=== PATIENT | male | born 1945 | race Caucasian/White ===

== ENCOUNTER 2016-09-08 10:17 | Outpatient (CLI) | payer MEDICARE, OTHER | END 2016-09-08 10:18 | disposition home or self-care (01) | DX: E78.5 Hyperlipidemia, unspecified (principal); E11.9 Type 2 diabetes mellitus without complications; I10 Essential (primary) hypertension ==

== ENCOUNTER 2016-12-15 08:54 | Outpatient (CLI) | payer MEDICARE, OTHER ==
[2016-12-15 14:11] LABS: ALBUMIN/GLOBULIN RATIO 1.4 (1.0-2.2); BILIRUBIN,TOTAL 0.8 mg/dL (0.2-1.0); BUN - BLOOD UREA NITROGEN 19 mg/dL (6-20); CARBON DIOXIDE - CO2 28 mmol/L (21-32); CHLORIDE 104 mmol/L (101-111); CHOL/HDL RATIO 3.8 (<5.0); CHOLESTEROL 167 mg/dL; CREATININE 1.2 mg/dL (0.6-1.2); GFR - MDRD 60 (>89); GLUCOSE 148 mg/dL (70-100); HDL CHOLESTEROL 44 mg/dL; LDL/HDL RATIO 2.3 (<3.6); POTASSIUM 4.4 mmol/L (3.5-5.0); SODIUM 138 mmol/L (135-145); TOTAL PROTEIN 7.2 g/dL (6.7-8.2); TRIGLYCERIDES 103 mg/dL; VLDL CHOLESTEROL 21 mg/dL
== END 2016-12-15 08:55 | disposition home or self-care (01) ==
LOC: LAB.WCP 08:54
PROVIDERS: ATTEND Family Medicine
DX: E78.5 Hyperlipidemia, unspecified (principal)
CPT/HCPCS: 36415; 80053; 80061

== ENCOUNTER 2017-03-16 13:04 | Outpatient (CLI) | payer MEDICARE, OTHER | END 2017-03-16 13:05 | disposition home or self-care (01) | LOC: SC 13:04 | PROVIDERS: ATTEND Nurse Practitioner Family | DX: G47.33 Obstructive sleep apnea (adult) (pediatric) (principal) | CPT/HCPCS: 99214; G0463; 99212 ==

== ENCOUNTER 2017-03-17 15:25 | Outpatient (CLI) | payer MEDICARE, OTHER ==
[2017-03-17 13:54] LABS: EOSINOPHILS # (AUTO) 0.3 10^3/uL (0.0-0.7); EOSINOPHILS % (AUTO) 8.5 %; HCT - HEMATOCRIT 41.2 % (42.0-52.0); HGB - HEMOGLOBIN 13.6 g/dL (14.0-18.0); LYMPHOCYTES # (AUTO) 0.9 10^3/uL (1.5-3.5); LYMPHOCYTES % (AUTO) 24.6 %; MEAN CORPUSCULAR HEMOGLOBIN 28.6 pg (27.0-31.0); MEAN CORPUSCULAR VOLUME 86.6 fL (80.0-94.0); MEAN PLATELET VOLUME 9.7 fL (7.4-11.4); MONOCYTES # (AUTO) 0.6 10^3/uL (0.0-1.0); MONOCYTES % (AUTO) 17.6 %; NEUTROPHILS # (AUTO) 1.8 10^3/uL (1.5-6.6); NEUTROPHILS % (AUTO) 48.3 %; RED BLOOD COUNT 4.75 10^6/uL (4.70-6.10); RED CELL DISTRIBUTION WIDTH 14.6 % (12.0-15.0); UNCORRECTED WHITE BLOOD COUNT 3.7 x10^3/uL; WHITE BLOOD COUNT 3.7 x10^3/uL (4.8-10.8)
[2017-03-17 14:09] LABS: ALBUMIN/GLOBULIN RATIO 1.4 (1.0-2.2); BILIRUBIN,TOTAL 0.5 mg/dL (0.2-1.0); BUN - BLOOD UREA NITROGEN 22 mg/dL (6-20); CALCIUM 9.1 mg/dL (8.5-10.3); CARBON DIOXIDE - CO2 27 mmol/L (21-32); CHLORIDE 105 mmol/L (101-111); CHOL/HDL RATIO 3.5 (<5.0); CHOLESTEROL 166 mg/dL; CREATININE 1.2 mg/dL (0.6-1.2); GFR - MDRD 60 (>89); GLUCOSE 158 mg/dL (70-100); HDL CHOLESTEROL 47 mg/dL; LDL/HDL RATIO 2.1 (<3.6); POTASSIUM 4.8 mmol/L (3.5-5.0); SODIUM 138 mmol/L (135-145); TOTAL PROTEIN 7.3 g/dL (6.7-8.2); TRIGLYCERIDES 89 mg/dL; VLDL CHOLESTEROL 18 mg/dL
[2017-03-17 14:33] LABS: HEMOGLOBIN A1C 0.9 g/dL
== END 2017-03-17 15:26 | disposition home or self-care (01) ==
LOC: LAB.WCP 15:25
PROVIDERS: ATTEND Family Medicine
DX: I10 Essential (primary) hypertension (principal); E11.9 Type 2 diabetes mellitus without complications; E78.5 Hyperlipidemia, unspecified
CPT/HCPCS: 36415; 80053; 80061; 82043; 83036; 85025

== ENCOUNTER 2017-06-08 11:11 | Outpatient (CLI) | payer MEDICARE, OTHER ==
[2017-06-08 19:28] LABS: ALBUMIN 4.2 g/dL (3.2-5.5); ALBUMIN/GLOBULIN RATIO 1.3 (1.0-2.2); ALKALINE PHOSPHATASE 59 IU/L (42-121); ALT ALANINE AMINOTRANSFERASE 36 IU/L (10-60); AST ASPARTATE AMINOTRANSFERASE 37 IU/L (10-42); BILIRUBIN,TOTAL 0.6 mg/dL (0.2-1.0); BUN - BLOOD UREA NITROGEN 16 mg/dL (6-20); CALCIUM 9.2 mg/dL (8.5-10.3); CARBON DIOXIDE - CO2 28 mmol/L (21-32); CHLORIDE 101 mmol/L (101-111); CHOL/HDL RATIO 3.9 (<5.0); CHOLESTEROL 194 mg/dL; CREATININE 1.1 mg/dL (0.6-1.2); GFR - MDRD 66 (>89); GLUCOSE 195 mg/dL (70-100); HDL CHOLESTEROL 50 mg/dL; LDL CHOLESTEROL,CALCULATED 107 mg/dL; LDL/HDL RATIO 2.1 (<3.6); SODIUM 138 mmol/L (135-145); TOTAL PROTEIN 7.4 g/dL (6.7-8.2); VLDL CHOLESTEROL 37 mg/dL
[2017-06-08 19:52] LABS: HB2 TOTAL 15.7 g/dL
== END 2017-06-08 11:12 | disposition home or self-care (01) ==
LOC: LAB.WCP 11:11
PROVIDERS: ATTEND Family Medicine
DX: E78.5 Hyperlipidemia, unspecified (principal); E11.9 Type 2 diabetes mellitus without complications
CPT/HCPCS: 36415; 80053; 80061; 83036

== ENCOUNTER 2017-06-28 09:59 | Outpatient (CLI) | payer MEDICARE, OTHER | END 2017-06-28 10:00 | disposition home or self-care (01) | LOC: NS 09:59 | PROVIDERS: ATTEND Family Medicine | DX: Z71.3 Dietary counseling and surveillance (principal); E11.9 Type 2 diabetes mellitus without complications; Z79.84 Long term (current) use of oral hypoglycemic drugs; Z68.33 Body mass index [BMI] 33.0-33.9, adult | CPT/HCPCS: 97802 ==

== ENCOUNTER 2017-07-12 09:54 | Outpatient (CLI) | payer MEDICARE, OTHER | END 2017-07-12 09:55 | disposition home or self-care (01) | LOC: NS 09:54 | PROVIDERS: ATTEND Family Medicine | DX: Z71.3 Dietary counseling and surveillance (principal); E11.9 Type 2 diabetes mellitus without complications; Z79.84 Long term (current) use of oral hypoglycemic drugs; Z68.32 Body mass index [BMI] 32.0-32.9, adult | CPT/HCPCS: 97803 ==

== ENCOUNTER 2017-09-07 08:00 | Outpatient (CLI) | payer MEDICARE, OTHER ==
[2017-09-07 18:57] LABS: ALBUMIN 4.4 g/dL (3.2-5.5); ALBUMIN/GLOBULIN RATIO 1.5 (1.0-2.2); ALKALINE PHOSPHATASE 51 IU/L (42-121); ALT ALANINE AMINOTRANSFERASE 18 IU/L (10-60); AST ASPARTATE AMINOTRANSFERASE 26 IU/L (10-42); BILIRUBIN,TOTAL 0.7 mg/dL (0.2-1.0); BUN - BLOOD UREA NITROGEN 23 mg/dL (6-20); CARBON DIOXIDE - CO2 25 mmol/L (21-32); CHLORIDE 105 mmol/L (101-111); CHOL/HDL RATIO 3.3 (<5.0); CHOLESTEROL 150 mg/dL; CREATININE 1.2 mg/dL (0.6-1.2); GFR - MDRD 60 (>89); GLUCOSE 119 mg/dL (70-100); HDL CHOLESTEROL 46 mg/dL; LDL CHOLESTEROL,CALCULATED 84 mg/dL; LDL/HDL RATIO 1.8 (<3.6); SODIUM 137 mmol/L (135-145); TOTAL PROTEIN 7.4 g/dL (6.7-8.2); VLDL CHOLESTEROL 20 mg/dL
[2017-09-07 19:18] LABS: HB2 TOTAL 14.8 g/dL; HEMOGLOBIN A1C 0.91 g/dL; HEMOGLOBIN A1C % 7.8 % (4.6-6.2)
== END 2017-09-07 08:01 | disposition home or self-care (01) ==
LOC: LAB.WCP 08:00
PROVIDERS: ATTEND Family Medicine
DX: E78.5 Hyperlipidemia, unspecified (principal); E11.9 Type 2 diabetes mellitus without complications
CPT/HCPCS: 36415; 80053; 80061; 83036; 83721

== ENCOUNTER 2018-01-04 08:00 | Outpatient (CLI) | payer MEDICARE, OTHER ==
[2018-01-04 12:45] LABS: BASOPHILS # (AUTO) 0.1 10^3/uL (0.0-0.1); BASOPHILS % (AUTO) 1.2 %; EOSINOPHILS # (AUTO) 0.3 10^3/uL (0.0-0.7); EOSINOPHILS % (AUTO) 7.8 %; HGB - HEMOGLOBIN 13.8 g/dL (14.0-18.0); LYMPHOCYTES # (AUTO) 1.1 10^3/uL (1.5-3.5); LYMPHOCYTES % (AUTO) 27.2 %; MEAN CORPUSCULAR HGB CONC 33.1 g/dL (32.0-36.0); MEAN CORPUSCULAR VOLUME 90.7 fL (80.0-94.0); MEAN PLATELET VOLUME 9.9 fL (7.4-11.4); MONOCYTES # (AUTO) 0.7 10^3/uL (0.0-1.0); MONOCYTES % (AUTO) 16.1 %; NEUTROPHILS % (AUTO) 47.7 %; PLT - PLATELET COUNT 180 10^3/uL (130-450); RED BLOOD COUNT 4.61 10^6/uL (4.70-6.10); RED CELL DISTRIBUTION WIDTH 13.3 % (12.0-15.0); WHITE BLOOD COUNT 4.1 x10^3/uL (4.8-10.8)
[2018-01-04 13:05] LABS: ALBUMIN 4.1 g/dL (3.2-5.5); ALBUMIN/GLOBULIN RATIO 1.2 (1.0-2.2); ALKALINE PHOSPHATASE 55 IU/L (42-121); ALT ALANINE AMINOTRANSFERASE 19 IU/L (10-60); AST ASPARTATE AMINOTRANSFERASE 24 IU/L (10-42); BUN - BLOOD UREA NITROGEN 30 mg/dL (6-20); CALCIUM 9.3 mg/dL (8.5-10.3); CARBON DIOXIDE - CO2 26 mmol/L (21-32); CHLORIDE 104 mmol/L (101-111); CHOL/HDL RATIO 3.7 (<5.0); CHOLESTEROL 168 mg/dL; CREATININE 1.2 mg/dL (0.6-1.2); GFR - MDRD 59 (>89); GLUCOSE 139 mg/dL (70-100); HDL CHOLESTEROL 45 mg/dL; LDL CHOLESTEROL,CALCULATED 99 mg/dL; LDL/HDL RATIO 2.2 (<3.6); SODIUM 137 mmol/L (135-145); TOTAL PROTEIN 7.4 g/dL (6.7-8.2); VLDL CHOLESTEROL 24 mg/dL
[2018-01-04 13:41] LABS: HEMOGLOBIN A1C 0.83 g/dL; HEMOGLOBIN A1C % 7.2 % (4.6-6.2)
== END 2018-01-04 08:01 | disposition home or self-care (01) ==
LOC: LAB.WCP 08:00
PROVIDERS: ATTEND Family Medicine
DX: I10 Essential (primary) hypertension (principal); E11.9 Type 2 diabetes mellitus without complications; E78.5 Hyperlipidemia, unspecified
CPT/HCPCS: 36415; 80053; 80061; 83036; 83721; 85025

== ENCOUNTER 2018-03-23 13:15 | Outpatient (CLI) | payer MEDICARE, OTHER | END 2018-03-23 13:16 | disposition home or self-care (01) | LOC: SC 13:15 | PROVIDERS: ATTEND Nurse Practitioner Family | DX: G47.33 Obstructive sleep apnea (adult) (pediatric) (principal) | CPT/HCPCS: 99213; G0463; 99212 ==

== ENCOUNTER 2018-04-29 08:00 | Outpatient (CLI) | payer MEDICARE, OTHER | END 2018-04-29 23:59 | disposition home or self-care (01) | LOC: LAB.WCP 08:00 | PROVIDERS: ATTEND Family Medicine | DX: Z12.5 Encounter for screening for malignant neoplasm of prostate (principal) | CPT/HCPCS: 36415; G0103; 84153 ==

== ENCOUNTER 2018-04-29 09:17 | Outpatient (CLI) | payer MEDICARE, OTHER | END 2018-04-29 09:18 | disposition home or self-care (01) | LOC: LAB 09:17 | PROVIDERS: ATTEND Family Medicine | DX: Z53.9 Procedure and treatment not carried out, unspecified reason (principal) ==

== ENCOUNTER 2018-07-25 08:00 | Outpatient (CLI) | payer MEDICARE, OTHER ==
[2018-07-25 12:20] LABS: BASOPHILS % (AUTO) 0.9 %; EOSINOPHILS # (AUTO) 0.3 10^3/uL (0.0-0.7); HGB - HEMOGLOBIN 14.2 g/dL (14.0-18.0); LYMPHOCYTES # (AUTO) 0.8 10^3/uL (1.5-3.5); LYMPHOCYTES % (AUTO) 20.3 %; MEAN CORPUSCULAR HGB CONC 34.2 g/dL (32.0-36.0); MEAN CORPUSCULAR VOLUME 87.7 fL (80.0-94.0); MEAN PLATELET VOLUME 9.6 fL (7.4-11.4); MONOCYTES # (AUTO) 0.6 10^3/uL (0.0-1.0); MONOCYTES % (AUTO) 15.3 %; NEUTROPHILS # (AUTO) 2.2 10^3/uL (1.5-6.6); NEUTROPHILS % (AUTO) 56.5 %; PLT - PLATELET COUNT 174 10^3/uL (130-450); RED BLOOD COUNT 4.73 10^6/uL (4.70-6.10); RED CELL DISTRIBUTION WIDTH 13.3 % (12.0-15.0)
[2018-07-25 12:58] LABS: ALBUMIN 4.3 g/dL (3.2-5.5); ALBUMIN/GLOBULIN RATIO 1.3 (1.0-2.2); ALKALINE PHOSPHATASE 61 IU/L (42-121); ALT ALANINE AMINOTRANSFERASE 27 IU/L (10-60); AST ASPARTATE AMINOTRANSFERASE 25 IU/L (10-42); BILIRUBIN,TOTAL 0.5 mg/dL (0.2-1.0); BUN - BLOOD UREA NITROGEN 19 mg/dL (6-20); CALCIUM 9.2 mg/dL (8.5-10.3); CARBON DIOXIDE - CO2 27 mmol/L (21-32); CHLORIDE 103 mmol/L (101-111); CHOL/HDL RATIO 3.8 (<5.0); CHOLESTEROL 196 mg/dL; CREATININE 1.1 mg/dL (0.6-1.2); GFR - MDRD 66 (>89); GLUCOSE 185 mg/dL (70-100); HDL CHOLESTEROL 51 mg/dL; LDL CHOLESTEROL,CALCULATED 118 mg/dL; LDL/HDL RATIO 2.3 (<3.6); SODIUM 137 mmol/L (135-145); TOTAL PROTEIN 7.6 g/dL (6.7-8.2); VLDL CHOLESTEROL 27 mg/dL
[2018-07-25 13:20] LABS: HB2 TOTAL 16.1 g/dL; HEMOGLOBIN A1C 1.11 g/dL; HEMOGLOBIN A1C % 8.5 % (4.6-6.2)
== END 2018-07-25 23:59 | disposition home or self-care (01) ==
LOC: LAB.WCP 08:00
PROVIDERS: ATTEND Family Medicine
DX: I10 Essential (primary) hypertension (principal); E11.9 Type 2 diabetes mellitus without complications; E78.5 Hyperlipidemia, unspecified
CPT/HCPCS: 36415; 80053; 80061; 82043; 83036; 83721; 85025

== ENCOUNTER 2018-08-11 08:00 | Outpatient (CLI) | payer MEDICARE, OTHER ==
[2018-08-11 13:46] LABS: BASOPHILS % (AUTO) 0.8 %; EOSINOPHILS # (AUTO) 0.3 10^3/uL (0.0-0.7); HGB - HEMOGLOBIN 13.7 g/dL (14.0-18.0); LYMPHOCYTES # (AUTO) 0.9 10^3/uL (1.5-3.5); LYMPHOCYTES % (AUTO) 21.5 %; MEAN CORPUSCULAR HEMOGLOBIN 29.5 pg (27.0-31.0); MEAN CORPUSCULAR HGB CONC 33.3 g/dL (32.0-36.0); MEAN CORPUSCULAR VOLUME 88.6 fL (80.0-94.0); MEAN PLATELET VOLUME 10.2 fL (7.4-11.4); MONOCYTES # (AUTO) 0.6 10^3/uL (0.0-1.0); MONOCYTES % (AUTO) 14.4 %; NEUTROPHILS # (AUTO) 2.4 10^3/uL (1.5-6.6); NEUTROPHILS % (AUTO) 56.3 %; PLT - PLATELET COUNT 190 10^3/uL (130-450); RED BLOOD COUNT 4.66 10^6/uL (4.70-6.10); RED CELL DISTRIBUTION WIDTH 13.5 % (12.0-15.0); WHITE BLOOD COUNT 4.2 x10^3/uL (4.8-10.8)
== END 2018-08-11 23:59 ==
LOC: LAB.WCP 08:00
PROVIDERS: ATTEND Family Medicine
DX: M25.551 Pain in right hip (principal); W55.01XA Bitten by cat, initial encounter
CPT/HCPCS: 36415; 85025; 85651; 86140

== ENCOUNTER 2018-08-11 08:32 | Outpatient (CLI) | payer MEDICARE, OTHER ==
--- NOTE | 2018-08-11 14:42 | XRAY Report ---
Reason: HIP PAIN, RIGHT Procedure Date: 08/11/2018 Accession Number: [id number] / [id number] Procedure: WCP - Hip w/Pelvis 2-3V RT CPT Code: FULL RESULT: EXAM: RIGHT HIP RADIOGRAPHY EXAM DATE: 08/11/2018 08:55 AM. CLINICAL HISTORY: Hip pain, right. COMPARISON: 04/20/2011 1:44 PM. TECHNIQUE: 2 views. FINDINGS: Interval bilateral total hip arthroplasty when compared to 2010. The right total hip arthroplasty demonstrates no evidence of dislocation or failure. No fracture or dislocation is seen. IMPRESSION: No fracture or dislocation. RADIA
== END 2018-08-11 08:33 | disposition home or self-care (01) ==
LOC: DI.WCP 08:32
PROVIDERS: ATTEND Family Medicine
DX: M25.551 Pain in right hip (principal); Z96.643 Presence of artificial hip joint, bilateral; W55.01XA Bitten by cat, initial encounter
CPT/HCPCS: 36415; 85025; 85651; 86140

== ENCOUNTER 2018-10-11 16:40 | Outpatient (CLI) | payer MEDICARE, OTHER ==
--- NOTE | 2018-10-12 10:45 | Ultrasound Report ---
Reason: SUBCUTANEOUS NODULE OF CHEST WALL Procedure Date: 10/11/2018 Accession Number: [id number] / [id number] Procedure: US - Chest CPT Code: FULL RESULT: EXAM: CHEST WALL ULTRASOUND LIMITED EXAM DATE: 10/11/2018 04:53 PM. CLINICAL HISTORY: Subcutaneous nodule of chest wall. COMPARISON: None. TECHNIQUE: Real-time scanning was performed with static images obtained. FINDINGS: The soft tissues overlying the mid sternum are focally interrogated in the region of interest. An isoechoic 1.2 x 1.0 cm mass was identified with vascularity peripherally, slightly wider than tall and relatively well circumscribed. IMPRESSION: Nonspecific 1.2 cm isoechoic mass as described. RADIA
== END 2018-10-11 16:41 | disposition home or self-care (01) ==
LOC: DI 16:40
PROVIDERS: ATTEND Family Medicine
DX: R22.2 Localized swelling, mass and lump, trunk (principal)
CPT/HCPCS: 76604

== ENCOUNTER 2018-11-15 08:00 | Outpatient (CLI) | payer MEDICARE, OTHER ==
[2018-11-15 14:36] LABS: BASOPHILS % (AUTO) 0.8 %; EOSINOPHILS # (AUTO) 0.3 10^3/uL (0.0-0.7); EOSINOPHILS % (AUTO) 7.1 %; HGB - HEMOGLOBIN 13.3 g/dL (14.0-18.0); LYMPHOCYTES # (AUTO) 0.9 10^3/uL (1.5-3.5); LYMPHOCYTES % (AUTO) 25.7 %; MEAN CORPUSCULAR HEMOGLOBIN 29.9 pg (27.0-31.0); MEAN CORPUSCULAR HGB CONC 33.8 g/dL (32.0-36.0); MEAN CORPUSCULAR VOLUME 88.5 fL (80.0-94.0); MEAN PLATELET VOLUME 9.8 fL (7.4-11.4); MONOCYTES # (AUTO) 0.6 10^3/uL (0.0-1.0); MONOCYTES % (AUTO) 16.4 %; NEUTROPHILS # (AUTO) 1.8 10^3/uL (1.5-6.6); PLT - PLATELET COUNT 178 10^3/uL (130-450); RED BLOOD COUNT 4.44 10^6/uL (4.70-6.10); RED CELL DISTRIBUTION WIDTH 13.7 % (12.0-15.0); WHITE BLOOD COUNT 3.7 x10^3/uL (4.8-10.8)
[2018-11-15 15:03] LABS: HB2 TOTAL 14.2 g/dL; HEMOGLOBIN A1C 1.01 g/dL; HEMOGLOBIN A1C % 8.7 % (4.6-6.2)
[2018-11-15 15:08] LABS: ALBUMIN 4.1 g/dL (3.2-5.5); ALBUMIN/GLOBULIN RATIO 1.4 (1.0-2.2); ALKALINE PHOSPHATASE 44 IU/L (42-121); ALT ALANINE AMINOTRANSFERASE 22 IU/L (10-60); AST ASPARTATE AMINOTRANSFERASE 24 IU/L (10-42); BILIRUBIN,TOTAL 0.7 mg/dL (0.2-1.0); BUN - BLOOD UREA NITROGEN 33 mg/dL (6-20); CALCIUM 9.4 mg/dL (8.5-10.3); CARBON DIOXIDE - CO2 25 mmol/L (21-32); CHLORIDE 105 mmol/L (101-111); CHOL/HDL RATIO 3.3 (<5.0); CHOLESTEROL 157 mg/dL; CREATININE 1.1 mg/dL (0.6-1.2); GFR - MDRD 65 (>89); GLUCOSE 166 mg/dL (70-100); HDL CHOLESTEROL 47 mg/dL; LDL CHOLESTEROL,CALCULATED 92 mg/dL; SODIUM 139 mmol/L (135-145); VLDL CHOLESTEROL 18 mg/dL
== END 2018-11-15 23:59 | disposition home or self-care (01) ==
LOC: LAB.WCP 08:00
PROVIDERS: ATTEND Family Medicine
DX: E78.5 Hyperlipidemia, unspecified (principal); E11.9 Type 2 diabetes mellitus without complications; I10 Essential (primary) hypertension
CPT/HCPCS: 36415; 80053; 80061; 83036; 83721; 85025

== ENCOUNTER 2019-02-14 08:00 | Outpatient (CLI) | payer MEDICARE, OTHER ==
[2019-02-14 12:44] LABS: EOSINOPHILS # (AUTO) 0.2 10^3/uL (0.0-0.7); EOSINOPHILS % (AUTO) 5.8 %; HGB - HEMOGLOBIN 13.4 g/dL (14.0-18.0); LYMPHOCYTES # (AUTO) 1.2 10^3/uL (1.5-3.5); MEAN CORPUSCULAR HEMOGLOBIN 29.5 pg (27.0-31.0); MEAN CORPUSCULAR HGB CONC 32.3 g/dL (32.0-36.0); MEAN CORPUSCULAR VOLUME 91.2 fL (80.0-94.0); MEAN PLATELET VOLUME 11.8 fL (7.4-11.4); MONOCYTES # (AUTO) 0.6 10^3/uL (0.0-1.0); MONOCYTES % (AUTO) 15.5 %; NEUTROPHILS # (AUTO) 1.9 10^3/uL (1.5-6.6); NEUTROPHILS % (AUTO) 48.4 %; PLT - PLATELET COUNT 184 10^3/uL (130-450); RED BLOOD COUNT 4.55 10^6/uL (4.70-6.10); RED CELL DISTRIBUTION WIDTH 12.8 % (12.0-15.0)
[2019-02-14 12:47] LABS: ALBUMIN 4.1 g/dL (3.2-5.5); ALBUMIN/GLOBULIN RATIO 1.4 (1.0-2.2); ALKALINE PHOSPHATASE 53 IU/L (42-121); ALT ALANINE AMINOTRANSFERASE 19 IU/L (10-60); AST ASPARTATE AMINOTRANSFERASE 20 IU/L (10-42); BILIRUBIN,TOTAL 0.6 mg/dL (0.2-1.0); BUN - BLOOD UREA NITROGEN 23 mg/dL (6-20); CALCIUM 9.1 mg/dL (8.5-10.3); CARBON DIOXIDE - CO2 27 mmol/L (21-32); CHLORIDE 106 mmol/L (101-111); CHOLESTEROL 169 mg/dL; CREATININE 1.2 mg/dL (0.6-1.2); GFR - MDRD 59 (>89); GLUCOSE 150 mg/dL (70-100); HDL CHOLESTEROL 42 mg/dL; LDL CHOLESTEROL,CALCULATED 100 mg/dL; LDL/HDL RATIO 2.4 (<3.6); SODIUM 138 mmol/L (135-145); VLDL CHOLESTEROL 27 mg/dL
[2019-02-14 12:52] LABS: HB2 TOTAL 14.1 g/dL; HEMOGLOBIN A1C 0.77 g/dL; HEMOGLOBIN A1C % 7.1 % (4.6-6.2)
== END 2019-02-14 23:59 | disposition home or self-care (01) ==
LOC: LAB.WCP 08:00
PROVIDERS: ATTEND Family Medicine
DX: E11.9 Type 2 diabetes mellitus without complications (principal); I10 Essential (primary) hypertension; E78.5 Hyperlipidemia, unspecified; D64.9 Anemia, unspecified
CPT/HCPCS: 36415; 80053; 80061; 83036; 83721; 85025

== ENCOUNTER 2019-04-05 13:13 | Outpatient (CLI) | payer MEDICARE, OTHER ==
--- NOTE | 2019-04-05 13:41 | SLEEP CARE CONSULTATION ---
Information from patient questionnaire entered by Pamela Braxton. I have reviewed and concur with the information entered by Pamela Braxton. This document represents the service I personally performed and the decisions made by me, Trina Lantigua, RN, MSN, DESIGN CHIEF. History of Present Illness Previous diagnosis: Moderate, Obstructive Sleep Apnea-Hypopnea Syndrome AHI: 27.3 Reason for follow up: annual Equipment type: CPAP Equipment obtained from: [employer] (has been having difficulty getting supplies in timely manner and spoke today to them and trying new system of ordering) Mask style: Nasal pillows Mask brand: Respironics Backup mask available: Yes Last cushion change: yesterday CPAP Compliance Data - Data Reviewed with Patient Average duration of nightly device use: 7.2 Compliance rate %: 99.4 (180 days) Current pressure setting (cmH2O): 10 Humidity settin Heated hose settin Average residual AHI: 1.7 Average large leak: 13 sec Subjective Patient concerns: reports: mask leak noise (only initially and adjustment resolves). denies: aerophagia, mask discomfort, air blowing in eyes, condensation in mask/hose, nasal congestion, dry mouth, nose, throat, epistaxis Observed to snore while using device: No (but oral vents a couple times a week. ) Current pressure setting perceived as: comfortable On therapy, patient: reports: sleeping better, awakening more refreshed, being more awake and alert during the day, more rested overall. denies: drowsiness while driving Initial [place] Sleepiness Scale score: 4 Current [place] Sleepiness Scale score: 1 Allergies and Home Medications Known drug allergies: No Home medication list reviewed: Yes Allergy and home medication list: Aspirin EC 81mg tab one daily Lisinopril 5mg tab one daily Centrum Silver 50+ Men Tab one daily Metformin HCL 500mg tab three times daily with meals CoQ10 100mg cap one daily Zetia 10mg tab one daily Vitamin D3 5000IU tab one daily Cephalexin 2000mg prior to dental procedures Review of Systems Review of systems same as previous: No (back surgery for herniated disc, removal of bilateral cataracts) Physical Exam Blood Pressure: 140/70 Cuff size: long Heart Rate: 87 O2 Saturation: 97 Height: 6 ft 1.25 in Weight: 243 lb 6.4 oz Body Mass Index: 31.8 BMI Classification: Obesity Class 1 Impression and Plan 1. Obstructive Sleep Apnea-Hypopnea Syndrome, moderate, with good treatment compliance and good apnea control. On CPAP therapy, the patient has better sleep quality and is more rested overall. For oral venting, I will reduce CPAP pressure to 9cmH20. If pressure change is uncomfortable he is to contact me for further adjustment. Since his BMI shows class one obesity, he was advised to lose weight. I explained how his obesity increases apnea risk and overall cardiometabolic risks. He is advised to start by reducing portions, and focusing on whole foods and avoiding refined foods. Significant weight loss will reduce apnea and CPAP pressure requirements. Symptoms to report discussed for pressure adjustment. Patient's apnea severity and rationale for treatment to reduce apnea, improve sleep quality and reduce cardiovascular and cerebrovascular events was reviewed. I also reviewed the benefit of consistent device use of CPAP for diabetes * Reduce CPAP pressure to 9 cmH2O * Notify me if snoring with mask or feeling that the pressure is too much or too little * Attempt to lose weight * Return for follow up in 1 year , or sooner if concerns arise . I spent 100% of this 20 minute visit face to face with the patient with greater than 50% of this was spent time counseling the patient and coordination of care.
[2019-04-05 13:42] VITALS: BP 140/70
== END 2019-04-05 13:14 | disposition home or self-care (01) ==
LOC: SC 13:13
PROVIDERS: ATTEND Nurse Practitioner Family
DX: G47.33 Obstructive sleep apnea (adult) (pediatric) (principal); E66.9 Obesity, unspecified; Z68.31 Body mass index [BMI] 31.0-31.9, adult
CPT/HCPCS: 99213; G0463; 99212

== ENCOUNTER 2019-07-10 09:18 | Outpatient (CLI) | payer MEDICARE, OTHER ==
[2019-07-10 12:02] LABS: BASOPHILS % (AUTO) 0.9 %; EOSINOPHILS # (AUTO) 0.3 10^3/uL (0.0-0.7); EOSINOPHILS % (AUTO) 6.6 %; HGB - HEMOGLOBIN 13.5 g/dL (14.0-18.0); LYMPHOCYTES % (AUTO) 23.1 %; MEAN CORPUSCULAR HEMOGLOBIN 29.4 pg (27.0-31.0); MEAN CORPUSCULAR HGB CONC 32.8 g/dL (32.0-36.0); MEAN CORPUSCULAR VOLUME 89.8 fL (80.0-94.0); MEAN PLATELET VOLUME 11.4 fL (7.4-11.4); MONOCYTES # (AUTO) 0.7 10^3/uL (0.0-1.0); NEUTROPHILS # (AUTO) 2.3 10^3/uL (1.5-6.6); NEUTROPHILS % (AUTO) 53.2 %; PLT - PLATELET COUNT 217 10^3/uL (130-450); RED BLOOD COUNT 4.59 10^6/uL (4.70-6.10); WHITE BLOOD COUNT 4.3 x10^3/uL (4.8-10.8)
[2019-07-10 13:00] LABS: ALBUMIN/GLOBULIN RATIO 1.3 (1.0-2.2); ALKALINE PHOSPHATASE 48 IU/L (42-121); ALT ALANINE AMINOTRANSFERASE 28 IU/L (10-60); AST ASPARTATE AMINOTRANSFERASE 26 IU/L (10-42); BILIRUBIN,TOTAL 0.6 mg/dL (0.2-1.0); BUN - BLOOD UREA NITROGEN 20 mg/dL (6-20); CARBON DIOXIDE - CO2 25 mmol/L (21-32); CHLORIDE 107 mmol/L (101-111); CHOL/HDL RATIO 3.9 (<5.0); CHOLESTEROL 172 mg/dL; CREATININE 1.2 mg/dL (0.6-1.2); GFR - MDRD 59 (>89); GLUCOSE 191 mg/dL (70-100); HDL CHOLESTEROL 44 mg/dL; LDL CHOLESTEROL,CALCULATED 110 mg/dL; LDL/HDL RATIO 2.5 (<3.6); SODIUM 140 mmol/L (135-145); TOTAL PROTEIN 7.1 g/dL (6.7-8.2); VLDL CHOLESTEROL 18 mg/dL
[2019-07-10 13:03] LABS: HB2 TOTAL 13.5 g/dL; HEMOGLOBIN A1C 0.92 g/dL; HEMOGLOBIN A1C % 8.4 % (4.6-6.2)
== END 2019-07-10 23:59 | disposition home or self-care (01) ==
LOC: LAB.WCP 09:18
PROVIDERS: ATTEND Family Medicine
DX: E11.9 Type 2 diabetes mellitus without complications (principal)
CPT/HCPCS: 36415; 80053; 80061; 83036; 83721; 85025

== ENCOUNTER 2019-10-11 08:00 | Outpatient (CLI) | payer MEDICARE, OTHER ==
[2019-10-11 13:59] LABS: CALCIUM 9.4 mg/dL (8.5-10.3); CREATININE 1.2 mg/dL (0.6-1.2)
[2019-10-11 14:10] LABS: HB2 TOTAL 14.2 g/dL; HEMOGLOBIN A1C % 8.6 % (4.6-6.2)
== END 2019-10-11 23:59 | disposition home or self-care (01) ==
LOC: LAB.WCP 08:00
PROVIDERS: ATTEND Family Medicine
DX: E11.9 Type 2 diabetes mellitus without complications (principal)
CPT/HCPCS: 36415; 80048; 83036

== ENCOUNTER 2019-12-29 06:30 | Day surgery (SDC) | payer MEDICARE, OTHER ==
[2019-12-29] MEDS ORDERED: MIDAZOLAM 2 MG/2 ML VIAL IVP ONE (06:31)
[2019-12-29] MEDS ORDERED: fentaNYL 250 MCG/5 ML VIAL IVP ONE (06:31)
[2019-12-29] MEDS ORDERED: LACTATED RINGERS 1,000 ML IV ONE ×2 (07:06→08:15)
[2019-12-29 09:24] VITALS: BP 118/73
== END 2019-12-29 06:31 | disposition home or self-care (01) ==
LOC: SDS 06:30
PROVIDERS: ATTEND Surgery
PROC: 0DJD8ZZ Inspection of Lower Intestinal Tract, Via Natural or Artificial Opening Endoscopic (ICD-10-PCS; principal; 2019-12-29 07:30)
DX: Z12.11 Encounter for screening for malignant neoplasm of colon (principal); E11.9 Type 2 diabetes mellitus without complications; E66.9 Obesity, unspecified; G47.30 Sleep apnea, unspecified; Z68.32 Body mass index [BMI] 32.0-32.9, adult; Z79.84 Long term (current) use of oral hypoglycemic drugs; Z86.010 Personal history of colon polyps
CPT/HCPCS: G0121; J3010; J7120

== ENCOUNTER 2020-04-04 13:42 | Outpatient (CLI) | payer MEDICARE, OTHER ==
--- NOTE | 2020-04-04 09:30 | SLEEP CARE CONSULTATION ---
Information from patient questionnaire entered by Cleo Stafford. I have reviewed and concur with the information entered by Cleo Stafford. This document represents the service I personally performed and the decisions made by me, Therese Nath ARNP. History of Present Illness Service Date and Time: 04/04/2020 0920 Previous diagnosis: Moderate, Obstructive Sleep Apnea-Hypopnea Syndrome AHI: 27.3 Reason for follow up: annual (last seen 2018) Equipment type: CPAP Equipment obtained from: [employer] (getting supplies as needed) Mask style: Nasal pillows Backup mask available: Yes (old mask) Last cushion change: 2 weeks ago Prior sleep studies: Yes Year and Where: 02/2005 location unknown Type of Sleep Study: Polysomnography HPI additional information: ERIC QURESHI was diagnosed to have moderate, AHI 27.3, obstructive sleep apnea-hypopnea syndrome and returns vial Telehealth video today with spouse for CPAP therapy annual follow-up. CPAP Compliance Data - Data Reviewed with Patient Average duration of nightly device use: 7 hours 16 minutes Compliance rate %: 99.4 Current pressure setting (cmH2O): 9 Humidity settin Average residual AHI: 2.1 Central apnea: 0.5 Obstructive apnea: 0.2 Average large leak: 11 seconds Subjective Patient concerns: reports: dry mouth, nose, throat (dry mouth once in a while, probably from mouth breathing). denies: aerophagia, mask discomfort, air blowing in eyes, mask leak noise, condensation in mask/hose, nasal congestion, epistaxis, other Observed to snore while using device: No Current pressure setting perceived as: comfortable On therapy, patient: reports: sleeping better, awakening more refreshed, being more awake and alert during the day, more rested overall. denies: drowsiness while driving Initial [place] Sleepiness Scale score: 4 Allergies and Home Medications Drug allergies reviewed: Yes (NKDA) Home medication list reviewed: Yes (Trulicity for DM) Review of Systems Review of systems same as previous: Yes (no changes) Weight loss over past 5 years: 10 pounds + over last 3-4 months Physical Exam Vital signs obtained and entered by: Telehealth visit, no vitals obtained Height: 6 ft 1 in Impression and Plan 1. Obstructive Sleep Apnea-Hypopnea Syndrome, moderate, with excellent treatment compliance and good apnea control. On CPAP therapy, the patient has better sleep quality and is more rested overall. Patient is doing well with his therapy and has no complaints. The patients CPAP is over 5 years old and of reasonable use. Thus, the CPAP will be updated. A DWO prescription will be made. Compliance guidelines for new device and follow up discussed. Patient's apnea severity and rationale for treatment to reduce apnea, improve sleep quality and reduce cardiovascular and cerebrovascular events was reviewed. I also reviewed the benefit of consistent device use of CPAP for his diabetes. Patient has lost weight. Obesity increases the risk of apnea, CPAP pressure requirements and overall health risks especially cardiovascular and diabetes. Thus patient is advised to continue to lose weight. * Continue auto CPAP pressure at 9 cmH2O * Update CPAP machine * Notify me if snoring with mask or feeling that the pressure is too much or too little * Continue to lose weight * Call this office if any problems using CPAP * Return for follow up in 1-2 months, or sooner if concerns arise Counseling Topics: Spare mask, Weight loss health impact Visit Type: Telehealth Video Video Type: Doximity Patient Location: Home Location of Provider: Home Patient agrees and consents to this telehealth visit type: Yes Patient agrees to have their insurance billed: Yes Time Spent with Patient (minutes): 16 Provider Statement: I spent 100% of the Telehealth Video Call with the patient with greater than 50% spent counseling the patient and coordination of care.
== END 2020-04-04 13:43 | disposition home or self-care (01) ==
LOC: SC 13:42
PROVIDERS: ATTEND Nurse Practitioner Family
DX: G47.33 Obstructive sleep apnea (adult) (pediatric) (principal)

== ENCOUNTER 2020-06-10 08:19 | Outpatient (CLI) | payer MEDICARE, OTHER ==
[2020-06-10 12:07] LABS: BASOPHILS % (AUTO) 0.7 %; EOSINOPHILS # (AUTO) 0.3 10^3/uL (0.0-0.7); EOSINOPHILS % (AUTO) 6.4 %; HGB - HEMOGLOBIN 12.7 g/dL (14.0-18.0); LYMPHOCYTES # (AUTO) 1.2 10^3/uL (1.5-3.5); LYMPHOCYTES % (AUTO) 26.7 %; MEAN CORPUSCULAR HGB CONC 32.2 g/dL (32.0-36.0); MEAN CORPUSCULAR VOLUME 90.2 fL (80.0-94.0); MEAN PLATELET VOLUME 11.7 fL (7.4-11.4); MONOCYTES # (AUTO) 0.7 10^3/uL (0.0-1.0); MONOCYTES % (AUTO) 16.3 %; NEUTROPHILS # (AUTO) 2.3 10^3/uL (1.5-6.6); NEUTROPHILS % (AUTO) 49.7 %; PLT - PLATELET COUNT 185 10^3/uL (130-450); RED BLOOD COUNT 4.38 10^6/uL (4.70-6.10); RED CELL DISTRIBUTION WIDTH 12.9 % (12.0-15.0); WHITE BLOOD COUNT 4.5 x10^3/uL (4.8-10.8)
[2020-06-10 13:24] LABS: ALBUMIN 4.1 g/dL (3.2-5.5); ALBUMIN/GLOBULIN RATIO 1.5 (1.0-2.2); ALKALINE PHOSPHATASE 51 IU/L (42-121); ALT ALANINE AMINOTRANSFERASE 21 IU/L (10-60); AST ASPARTATE AMINOTRANSFERASE 23 IU/L (10-42); BILIRUBIN,TOTAL 0.7 mg/dL (0.2-1.0); BUN - BLOOD UREA NITROGEN 16 mg/dL (6-20); CALCIUM 9.4 mg/dL (8.5-10.3); CARBON DIOXIDE - CO2 27 mmol/L (21-32); CHLORIDE 105 mmol/L (101-111); CHOL/HDL RATIO 2.9 (<5.0); CHOLESTEROL 144 mg/dL; CREATININE 1.2 mg/dL (0.6-1.2); GLUCOSE 179 mg/dL (70-100); HDL CHOLESTEROL 49 mg/dL; LDL CHOLESTEROL,CALCULATED 73 mg/dL; LDL/HDL RATIO 1.5 (<3.6); SODIUM 140 mmol/L (135-145); TOTAL PROTEIN 6.8 g/dL (6.7-8.2); VLDL CHOLESTEROL 22 mg/dL
[2020-06-10 13:33] LABS: CREATININE,URINE 163.1 mg/dL; MICROALBUM/CREATININE RATIO,UR 4.9 ug/mg (<30.0); MICROALBUMIN,URINE 0.8 mg/dL (0-300.0)
[2020-06-10 13:34] LABS: HEMOGLOBIN A1c% 7.2 % (4.27-6.07)
== END 2020-06-10 23:59 | disposition home or self-care (01) ==
LOC: LAB.WCP 08:19
PROVIDERS: ATTEND Family Medicine
DX: E11.9 Type 2 diabetes mellitus without complications (principal)
CPT/HCPCS: 36415; 80053; 80061; 82043; 82570; 83036; 83721; 85025

== ENCOUNTER 2020-08-13 09:43 | Outpatient (CLI) | payer MEDICARE, OTHER ==
--- NOTE | 2020-08-13 10:33 | SLEEP CARE CONSULTATION ---
Information from patient questionnaire entered by Pamela Braxton. I have reviewed and concur with the information entered by Pamela Braxton. This document represents the service I personally performed and the decisions made by , Therese Nath ARNP. History of Present Illness Service Date and Time: 08/13/2020 0943 Previous diagnosis: Moderate, Obstructive Sleep Apnea-Hypopnea Syndrome AHI: 27.3 (in 2004) Reason for follow up: first compliance after device update Equipment type: CPAP Equipment obtained from: [employer] (getting supplies as needed) Mask style: Nasal pillows Mask brand: Respironics (Dreamwear) Backup mask available: Yes (old mask) Last cushion change: 1 week ago Prior sleep studies: Yes Year and Where: 2004 [facility] Type of Sleep Study: Polysomnography HPI additional information: ERIC QURESHI was diagnosed to have moderate, AHI 27.3, obstructive sleep apnea-hypopnea syndrome and returned today with spouse for CPAP therapy first compliance after updating device follow-up. CPAP Compliance Data - Data Reviewed with Patient Average duration of nightly device use: 6 hr 35 min Compliance rate %: 90 Current pressure setting (cmH2O): 9 Humidity settin Heated hose settin Average residual AHI: 1.0 Average large leak: 43 sec Subjective Patient concerns: denies: aerophagia, mask discomfort, air blowing in eyes, mask leak noise, condensation in mask/hose, nasal congestion, dry mouth, nose, throat (using chinstrap to keep from having dry mouth), epistaxis, other Observed to snore while using device: No Current pressure setting perceived as: comfortable On therapy, patient: reports: sleeping better, awakening more refreshed, being more awake and alert during the day, more rested overall. denies: drowsiness while driving Initial [place] Sleepiness Scale score: 4 (in 2009) Current [place] Sleepiness Scale score: 3 Allergies and Home Medications Drug allergies reviewed: Yes (NKDA) Home medication list reviewed: Yes (Raheem) Review of Systems Review of systems same as previous: Yes (no changes) Physical Exam Heart Rate: 79 O2 Saturation: 98 Height: 6 ft 1 in Weight: 236 lb Body Mass Index: 31.1 BMI Classification: Obese Impression and Plan 1. Obstructive Sleep Apnea-Hypopnea Syndrome, moderate, with good treatment compliance and good apnea control. On CPAP therapy, the patient has better sleep quality and is more rested overall. He has no concerns or issues with mask or CPAP use. Patient's apnea severity and rationale for treatment to reduce apnea, improve sleep quality and reduce cardiovascular and cerebrovascular events was reviewed. I also reviewed the benefit of consistent device use of CPAP for his diabetes. * Continue auto CPAP pressure at 9 cmH2O * Notify me if snoring with mask or feeling that the pressure is too much or too little * Attempt to lose weight * Call this office if any problems using CPAP * Return for follow up in 1 year, or sooner if concerns arise Counseling Topics: Spare mask, Weight loss health impact Visit Type: In Office Time Spent with Patient (minutes): 14 Provider Statement: I spent 100% of the Face to Face Visit with the patient with greater than 50% spent counseling the patient and coordination of care.
== END 2020-08-13 09:44 | disposition home or self-care (01) ==
LOC: SC 09:43
PROVIDERS: ATTEND Nurse Practitioner Family
DX: G47.33 Obstructive sleep apnea (adult) (pediatric) (principal); E11.9 Type 2 diabetes mellitus without complications; E66.9 Obesity, unspecified; Z68.31 Body mass index [BMI] 31.0-31.9, adult; Z79.84 Long term (current) use of oral hypoglycemic drugs
CPT/HCPCS: 99212; G0463

== ENCOUNTER 2020-08-28 07:00 | Outpatient (CLI) | payer MEDICARE, OTHER ==
--- NOTE | 2020-08-28 14:34 | XRAY Report ---
PROCEDURE: Lumbar Spine Complete INDICATIONS: LOW BACK PAIN TECHNIQUE: 4 views of the lumbar spine were acquired. COMPARISON: None. FINDINGS: Bones: 5 [id number] vertebrae are present. There is trace multi-level retrolithesis. Mild to moderate disc space narrowing at L4-5, L5-S1. Moderate to severe foraminal narrowing at L4-5, L5-S1. No vertebral body compression fractures. No suspicious bony lesions. Soft tissues: Overlying bowel gas pattern is normal. No suspicious soft tissue calcifications. IMPRESSION: Degenerative changes most severe at L4-5, L5-S1. Reviewed by: Karen Ballard MD on 08/28/2020 2:33 PM PDT Approved by: Karen Ballard MD on 08/28/2020 2:33 PM PDT Station ID: [id number]
== END 2020-08-28 23:59 | disposition home or self-care (01) ==
LOC: DI.WCP 07:00
PROVIDERS: ATTEND Family Medicine
DX: M54.5 Low back pain (principal); M47.817 Spondylosis without myelopathy or radiculopathy, lumbosacral region

== ENCOUNTER 2020-09-09 08:00 | Outpatient (CLI) | payer MEDICARE, OTHER ==
[2020-09-09 13:10] LABS: ESTIMATED AVERAGE GLUCOSE 171 mg/dL (70-100); HEMOGLOBIN A1c% 7.6 % (4.27-6.07)
[2020-09-09 13:11] LABS: CREATININE 1.2 mg/dL (0.6-1.2); POTASSIUM 4.8 mmol/L (3.5-5.0)
[2020-09-09 13:12] LABS: CALCIUM 9.4 mg/dL (8.5-10.3)
== END 2020-09-09 23:59 | disposition home or self-care (01) ==
LOC: LAB.WCP 08:00
PROVIDERS: ATTEND Family Medicine
DX: E11.9 Type 2 diabetes mellitus without complications (principal)
CPT/HCPCS: 36415; 80048; 83036

== ENCOUNTER 2020-12-04 08:00 | Outpatient (CLI) | payer MEDICARE, OTHER ==
[2020-12-04 12:46] LABS: ESTIMATED AVERAGE GLUCOSE 169 mg/dL (70-100); HEMOGLOBIN A1c% 7.5 % (4.27-6.07)
[2020-12-04 13:02] LABS: CALCIUM 9.1 mg/dL (8.5-10.3); CREATININE 1.2 mg/dL (0.6-1.2); POTASSIUM 4.5 mmol/L (3.5-5.0)
== END 2020-12-04 23:59 | disposition home or self-care (01) ==
LOC: LAB.WCP 08:00
PROVIDERS: ATTEND Family Medicine
DX: E11.9 Type 2 diabetes mellitus without complications (principal)
CPT/HCPCS: 36415; 80048; 83036

== ENCOUNTER 2021-05-20 08:47 | Outpatient (CLI) | payer MEDICARE, OTHER ==
[2021-05-20 12:15] LABS: BASOPHILS % (AUTO) 0.9 %; EOSINOPHILS # (AUTO) 0.3 10^3/uL (0.0-0.7); EOSINOPHILS % (AUTO) 7.7 %; HCT - HEMATOCRIT 40.3 % (42.0-52.0); HGB - HEMOGLOBIN 13.2 g/dL (14.0-18.0); LYMPHOCYTES # (AUTO) 1.1 10^3/uL (1.5-3.5); LYMPHOCYTES % (AUTO) 23.9 %; MEAN CORPUSCULAR HEMOGLOBIN 29.5 pg (27.0-31.0); MEAN CORPUSCULAR HGB CONC 32.8 g/dL (32.0-36.0); MEAN PLATELET VOLUME 11.3 fL (7.4-11.4); MONOCYTES # (AUTO) 0.8 10^3/uL (0.0-1.0); MONOCYTES % (AUTO) 17.8 %; NEUTROPHILS # (AUTO) 2.2 10^3/uL (1.5-6.6); NEUTROPHILS % (AUTO) 49.7 %; PLT - PLATELET COUNT 185 10^3/uL (130-450); RED BLOOD COUNT 4.48 10^6/uL (4.70-6.10); RED CELL DISTRIBUTION WIDTH 12.9 % (12.0-15.0); WHITE BLOOD COUNT 4.4 x10^3/uL (4.8-10.8)
[2021-05-20 12:29] LABS: ALBUMIN 4.1 g/dL (3.2-5.5); ALBUMIN/GLOBULIN RATIO 1.2 (1.0-2.2); ALKALINE PHOSPHATASE 47 IU/L (42-121); ALT ALANINE AMINOTRANSFERASE 18 IU/L (10-60); AST ASPARTATE AMINOTRANSFERASE 21 IU/L (10-42); BILIRUBIN,TOTAL 0.7 mg/dL (0.2-1.0); BUN - BLOOD UREA NITROGEN 21 mg/dL (6-20); CALCIUM 9.5 mg/dL (8.5-10.3); CARBON DIOXIDE - CO2 26 mmol/L (21-32); CHLORIDE 103 mmol/L (101-111); CHOL/HDL RATIO 2.5 (<5.0); CHOLESTEROL 128 mg/dL; CREATININE 1.3 mg/dL (0.6-1.2); GFR - MDRD 54 (>89); GLUCOSE 170 mg/dL (70-100); HDL CHOLESTEROL 52 mg/dL; LDL CHOLESTEROL,CALCULATED 54 mg/dL; POTASSIUM 4.4 mmol/L (3.5-5.0); SODIUM 139 mmol/L (135-145); TOTAL PROTEIN 7.4 g/dL (6.7-8.2); TRIGLYCERIDES 112 mg/dL; VLDL CHOLESTEROL 22 mg/dL
[2021-05-20 12:33] LABS: ESTIMATED AVERAGE GLUCOSE 174 mg/dL (70-100); HEMOGLOBIN A1c% 7.7 % (4.27-6.07)
[2021-05-20 13:08] LABS: CREATININE,URINE 130.9 mg/dL; MICROALBUM/CREATININE RATIO,UR 6.1 ug/mg (<30.0); MICROALBUMIN,URINE 0.8 mg/dL (0-300.0)
== END 2021-05-20 23:59 | disposition home or self-care (01) ==
LOC: LAB.WCP 08:47
PROVIDERS: ATTEND Family Medicine
DX: E11.9 Type 2 diabetes mellitus without complications (principal)
CPT/HCPCS: 36415; 80053; 80061; 82043; 82570; 83036; 83721; 85025

== ENCOUNTER 2021-06-04 09:02 | Outpatient (CLI) | payer MEDICARE, OTHER ==
--- NOTE | 2021-06-04 09:52 | XRAY Report ---
PROCEDURE: Knee 4 View BILAT INDICATIONS: BILATERAL KNEE PX TECHNIQUE: 4 views of the bilateral knee(s) were acquired. COMPARISON: None. FINDINGS: Bones: No fractures or dislocations. No suspicious bony lesions. Moderate periarticular osteophyte formation bilaterally. Severe medial compartment narrowing bilaterally. Soft tissues: No joint effusion. No suspicious soft tissue calcifications. IMPRESSION: Bilateral osteoarthritis with medial compartment narrowing. No acute fracture. No osseou s lesion. If symptoms and/or clinical suspicion for pathology continue, further assessment with repea t plain films, or advanced imaging (e.g., CT, MRI, or bone scan) is recommended for further assessmen t. Reviewed by: Mary Ibarra MD on 06/04/2021 9:51 AM PST Approved by: Mary Ibarra MD on 06/04/2021 9:51 AM PST Station ID: [id number]
== END 2021-06-04 09:03 | disposition home or self-care (01) ==
LOC: DI.N 09:02
PROVIDERS: ATTEND Family Medicine
DX: M17.0 Bilateral primary osteoarthritis of knee (principal)

== ENCOUNTER 2021-10-16 08:00 | Outpatient (CLI) | payer MEDICARE, OTHER | END 2021-10-17 21:35 | disposition home or self-care (01) | LOC: LAB.N 08:00 | PROVIDERS: ATTEND Nurse Practitioner | DX: J18.9 Pneumonia, unspecified organism (principal); Z20.822 Contact with and (suspected) exposure to COVID-19 ==

== ENCOUNTER 2021-10-21 09:29 | Outpatient (CLI) | payer MEDICARE, OTHER ==
[2021-10-21 11:39] LABS: EOSINOPHILS # (AUTO) 0.3 10^3/uL (0.0-0.7); EOSINOPHILS % (AUTO) 6.4 %; HCT - HEMATOCRIT 39.6 % (42.0-52.0); HGB - HEMOGLOBIN 12.8 g/dL (14.0-18.0); LYMPHOCYTES # (AUTO) 0.9 10^3/uL (1.5-3.5); LYMPHOCYTES % (AUTO) 22.5 %; MEAN CORPUSCULAR HEMOGLOBIN 29.2 pg (27.0-31.0); MEAN CORPUSCULAR HGB CONC 32.3 g/dL (32.0-36.0); MEAN CORPUSCULAR VOLUME 90.2 fL (80.0-94.0); MEAN PLATELET VOLUME 11.3 fL (7.4-11.4); MONOCYTES # (AUTO) 0.7 10^3/uL (0.0-1.0); MONOCYTES % (AUTO) 17.8 %; NEUTROPHILS # (AUTO) 2.1 10^3/uL (1.5-6.6); NEUTROPHILS % (AUTO) 52.1 %; PLT - PLATELET COUNT 251 10^3/uL (130-450); RED BLOOD COUNT 4.39 10^6/uL (4.70-6.10); RED CELL DISTRIBUTION WIDTH 12.8 % (12.0-15.0)
[2021-10-21 12:47] LABS: ALBUMIN 3.9 g/dL (3.2-5.5); ALKALINE PHOSPHATASE 78 IU/L (42-121); ALT ALANINE AMINOTRANSFERASE 16 IU/L (10-60); AST ASPARTATE AMINOTRANSFERASE 17 IU/L (10-42); BILIRUBIN,TOTAL 0.5 mg/dL (0.2-1.0); BUN - BLOOD UREA NITROGEN 25 mg/dL (6-20); CALCIUM 9.6 mg/dL (8.5-10.3); CARBON DIOXIDE - CO2 25 mmol/L (21-32); CHLORIDE 104 mmol/L (101-111); CHOLESTEROL 127 mg/dL; CREATININE 1.4 mg/dL (0.6-1.2); GFR - MDRD 49 (>89); GLUCOSE 209 mg/dL (70-100); HDL CHOLESTEROL 42 mg/dL; LDL CHOLESTEROL,CALCULATED 69 mg/dL; LDL/HDL RATIO 1.6 (<3.6); POTASSIUM 5.2 mmol/L (3.5-5.0); SODIUM 138 mmol/L (135-145); TOTAL PROTEIN 7.7 g/dL (6.7-8.2); TRIGLYCERIDES 82 mg/dL; VLDL CHOLESTEROL 16 mg/dL
[2021-10-21 12:48] LABS: ESTIMATED AVERAGE GLUCOSE 189 mg/dL (70-100); HEMOGLOBIN A1c% 8.2 % (4.27-6.07)
== END 2021-10-21 09:30 | disposition home or self-care (01) ==
LOC: LAB.N 09:29
PROVIDERS: ATTEND Family Medicine
DX: E11.9 Type 2 diabetes mellitus without complications (principal)
CPT/HCPCS: 36415; 80053; 80061; 83036; 83721; 85025

== ENCOUNTER 2022-04-10 10:56 | Outpatient (CLI) | payer MEDICARE, OTHER ==
[2022-04-10 18:05] LABS: CALCIUM 9.3 mg/dL (8.5-10.3); CREATININE 1.3 mg/dL (0.6-1.2); POTASSIUM 4.7 mmol/L (3.5-5.0)
== END 2022-04-10 10:57 | disposition home or self-care (01) ==
LOC: LAB.N 10:56
PROVIDERS: ATTEND Family Medicine
DX: I10 Essential (primary) hypertension (principal)
CPT/HCPCS: 36415; 80048

== ENCOUNTER 2022-06-27 11:10 | Outpatient (CLI) | payer MEDICARE, OTHER ==
[2022-06-27 18:34] LABS: BASOPHILS % (AUTO) 0.6 %; EOSINOPHILS # (AUTO) 0.2 10^3/uL (0.0-0.7); EOSINOPHILS % (AUTO) 3.7 %; HCT - HEMATOCRIT 41.8 % (42.0-52.0); HGB - HEMOGLOBIN 13.2 g/dL (14.0-18.0); LYMPHOCYTES # (AUTO) 1.1 10^3/uL (1.5-3.5); LYMPHOCYTES % (AUTO) 21.3 %; MEAN CORPUSCULAR HEMOGLOBIN 28.2 pg (27.0-31.0); MEAN CORPUSCULAR HGB CONC 31.6 g/dL (32.0-36.0); MEAN CORPUSCULAR VOLUME 89.3 fL (80.0-94.0); MEAN PLATELET VOLUME 11.8 fL (7.4-11.4); MONOCYTES # (AUTO) 0.7 10^3/uL (0.0-1.0); MONOCYTES % (AUTO) 13.2 %; PLT - PLATELET COUNT 230 10^3/uL (130-450); RED BLOOD COUNT 4.68 10^6/uL (4.70-6.10); RED CELL DISTRIBUTION WIDTH 13.2 % (12.0-15.0); WHITE BLOOD COUNT 4.9 x10^3/uL (4.8-10.8)
[2022-06-27 18:56] LABS: ALBUMIN 4.3 g/dL (3.2-5.5); ALBUMIN/GLOBULIN RATIO 1.2 (1.0-2.2); ALKALINE PHOSPHATASE 61 IU/L (42-121); ALT ALANINE AMINOTRANSFERASE 19 IU/L (10-60); AST ASPARTATE AMINOTRANSFERASE 21 IU/L (10-42); BILIRUBIN,TOTAL 0.7 mg/dL (0.2-1.0); BUN - BLOOD UREA NITROGEN 29 mg/dL (6-20); CALCIUM 9.7 mg/dL (8.5-10.3); CARBON DIOXIDE - CO2 26 mmol/L (21-32); CHLORIDE 106 mmol/L (101-111); CHOLESTEROL 140 mg/dL; CREATININE 1.3 mg/dL (0.6-1.2); GFR - MDRD 54 (>89); GLUCOSE 153 mg/dL (70-100); HDL CHOLESTEROL 47 mg/dL; LDL CHOLESTEROL,CALCULATED 66 mg/dL; LDL/HDL RATIO 1.4 (<3.6); SODIUM 139 mmol/L (135-145); TOTAL PROTEIN 7.8 g/dL (6.7-8.2); TRIGLYCERIDES 136 mg/dL; VLDL CHOLESTEROL 27 mg/dL
[2022-06-27 19:06] LABS: THYROID STIMULATING HORMONE 2.37 uIU/mL (0.34-5.60)
[2022-06-27 22:00] LABS: ESTIMATED AVERAGE GLUCOSE 171 mg/dL (70-100); HEMOGLOBIN A1c% 7.6 % (4.27-6.07)
== END 2022-06-27 11:11 | disposition home or self-care (01) ==
LOC: LAB.N 11:10
PROVIDERS: ATTEND Nurse Practitioner Family
DX: I10 Essential (primary) hypertension (principal); E11.9 Type 2 diabetes mellitus without complications; E78.5 Hyperlipidemia, unspecified
CPT/HCPCS: 36415; 80053; 80061; 83036; 83721; 84443; 85025

== ENCOUNTER 2022-07-09 14:30 | Outpatient (CLI) | payer MEDICARE, OTHER ==
[2022-07-09 15:15] VITALS: BP 110/62
--- NOTE | 2022-07-09 15:15 | SLEEP CARE CONSULTATION ---
Information from patient questionnaire entered by Amaury Chandler. I have reviewed and concur with the information entered by Amaury Chandler. This document represents the service I personally performed and the decisions made by me, Therese Nath ARNP. History of Present Illness Service Date and Time: 07/09/2022 1430 Previous diagnosis: Moderate, Obstructive Sleep Apnea-Hypopnea Syndrome AHI: 27.3 (in 2004) Reason for follow up: annual (LAST SEEN 06/2021) Equipment type: CPAP ([employer] Dreamstation recertified) Equipment obtained from: [employer] (getting supplies as needed) Mask style: Nasal pillows (medium cushion) Backup mask available: Yes (old mask) Last cushion change: 2-3 weeks ago Prior sleep studies: Yes Year and Where: [address] [place] [address] Type of Sleep Study: Polysomnography HPI additional information: ERIC QURESHI was diagnosed to have moderate, AHI 27.3, obstructive sleep apnea-hypopnea syndrome and returned today with spouse for CPAP therapy annual follow-up. Sleep Study - Results Type of Sleep Study: Polysomnography Prior sleep studies: Yes Year and Where: [address] [place] [address] CPAP Compliance Data - Data Reviewed with Patient Average duration of nightly device use: 7 HRS 13 MIN 26SEC Compliance rate %: 98.9 (180/180 days used) Current pressure setting (cmH2O): 9 Average residual AHI: 0.8 Central apnea: 0.3 Obstructive apnea: 0.1 Average large leak: 0 Subjective Patient concerns: reports: dry mouth, nose, throat (oral venting; using chin strap). denies: aerophagia, mask discomfort, air blowing in eyes, mask leak noise, condensation in mask/hose, nasal congestion, epistaxis Observed to snore while using device: Yes (often according to - more like blowing sounds with mouth) Current pressure setting perceived as: comfortable On therapy, patient: reports: sleeping better, awakening more refreshed, being more awake and alert during the day, more rested overall. denies: drowsiness while driving Initial [place] Sleepiness Scale score: 4 (in 2009) Current [place] Sleepiness Scale score: 3 (07/09/22) Allergies and Home Medications Drug allergies reviewed: Yes (NKDA) Home medication list reviewed: Yes (Jardience 20 mg daily) Review of Systems Review of systems same as previous: Yes (no changes) Physical Exam Vital signs obtained and entered by: AMAURY Villalobos MA Blood Pressure: 110/62 (LEFT ARM) Cuff size: regular Heart Rate: 65 O2 Saturation: 95 Height: 6 ft 1 in Weight: 226 lb 12.8 oz Body Mass Index: 29.9 BMI Classification: Overweight Impression and Plan 1. Obstructive Sleep Apnea-Hypopnea Syndrome, moderate, with good treatment compliance and good apnea control. On CPAP therapy, the patient has better sleep quality and is more rested overall. Patient has significant improvement of their sleep apnea and are satisfied with current CPAP therapy. He complains of getting a dry mouth most mornings. He does try to use a chin strap to keep mouth closed but his mouth will still come open. He requests to try a full face mask. I will add this to his supply prescription for a mask refitting for a full face mask. Patient's apnea severity and rationale for treatment to reduce apnea, improve sleep quality and reduce cardiovascular and cerebrovascular events was reviewed. I also reviewed the benefit of consistent device use of CPAP for diabetes. 2. Overweight, unspecified. Currently patients BMI is 29.9. Obesity increases the risk of apnea, CPAP pressure requirements and overall health risks especially cardiovascular and diabetes. Thus patient is advised to lose weight. * Continue CPAP pressure at 9 cmH2O * Mask refitting for full face mask * Update supplies * Notify me if snoring with mask or feeling that the pressure is too much or too little * Attempt to lose weight * Call this office if any problems using CPAP * Return for follow up in 1 year, or sooner if concerns arise Counseling Topics: Spare mask, Weight loss health impact Visit Type: In Office Other Participants: Spouse/Significant Other Time Spent with Patient (minutes): 20 Provider Statement: I spent 100% of the Face to Face Visit with the patient with greater than 50% spent counseling the patient and coordination of care.
== END 2022-07-09 14:31 | disposition home or self-care (01) ==
LOC: SC 14:30
PROVIDERS: ATTEND Nurse Practitioner Family
DX: G47.33 Obstructive sleep apnea (adult) (pediatric) (principal); E66.3 Overweight; Z68.29 Body mass index [BMI] 29.0-29.9, adult
CPT/HCPCS: 99213; G0463; 99212

== ENCOUNTER 2022-12-18 11:35 | Emergency (ER) | payer MEDICARE, OTHER ==
[2022-12-18] MEDS ORDERED: TRANEXAMIC ACID 1,000 MG in SODIUM CHLORIDE 0.9% 100ML 100 ML IV STA (11:56)
--- NOTE | 2022-12-18 11:58 | ED Physician Documentation ---
History of Present Illness - Stated complaint Stated Complaint: FACE SWELLING - Chief complaint Chief Complaint: Allergic Rx - Additonal information Additional information: 77-year-old male presents to the emergency department for evaluation of 2 days facial and lip swelling. He does take 5 mg of lisinopril daily, last took yesterday evening. No history of similar in the past. Patient reports that over the last 2 days he has not had any difficulty breathing talking or swallowing. Because of the facial lip swelling he went to the local walk-in clinic where he was administered 50 mg of Benadryl IM, 10 mg of Decadron orally as well as 0.3 mg of epinephrine. On presentation to the emergency department here he reports that the swelling is starting to improve. Denies chest pain or shortness of air. He is not anticoagulated. Review of Systems Constitutional: denies: Fever, Chills Ears: reports: Reviewed and negative Throat: reports: Other (Face and lip swelling. No evidence of swelling of the tongue or posterior oropharynx) Cardiac: reports: Reviewed and negative Respiratory: reports: Reviewed and negative GI: reports: Reviewed and negative : reports: Reviewed and negative Skin: reports: Reviewed and negative Musculoskeletal: reports: Reviewed and negative PD PAST MEDICAL HISTORY - Past Medical History Cardiovascular: Hypertension, High cholesterol Respiratory: Sleep apnea, CPAP use Endocrine/Autoimmune: Type 2 diabetes GI: Hiatal hernia, Colon polyps : None HEENT: None Psych: None Musculoskeletal: Osteoarthritis Derm: None - Past Surgical History General: Cholecystectomy, Colonoscopy Ortho: Hip replacement, Spine surgery - Present Medications Home Medications: Ambulatory Orders Medication Instructions Recorded Confirmed Aspirin 81 mg PO DAILY 12/28/19 07/09/22 Simvastatin 20 mg PO DAILY 12/28/19 07/09/22 lisinopriL [Prinivil] 5 mg PO DAILY 12/28/19 07/09/22 metFORMIN [Glucophage] 500 mg PO TID 12/28/19 07/09/22 Dulaglutide [Trulicity] 0.75 mg SQ OAW 12/29/19 07/09/22 Empagliflozin [Jardiance] See Rx Instructions .ROUTE .COMPLEX 07/09/22 07/09/22 predniSONE [Deltasone] 40 mg PO DAILY 5 Days #6 tablet 12/18/22 - Allergies Allergies/Adverse Reactions: Allergies Allergy/AdvReac Type Severity Reaction Status Date / Time No Known Drug Allergies Allergy Verified 12/18/22 11:45 PD ED PE NORMAL - General General: Alert and oriented X 3, No acute distress - HEENT HEENT: Atraumatic, Moist mucous membranes, Pharynx benign (No posterior oropharynx edema uvula or tongue swelling. Uvula is midline. No soft palate asymmetry or swelling. Normal phonation. Normal swallow.), Other (Very minimal amount of facial swelling especially on the right side around the eyes.) - Neck Neck: Supple, no meningeal sign - Cardiac Cardiac: RRR, No murmur - Respiratory Respiratory: No respiratory distress, Clear bilaterally - Abdomen Abdomen: Normal bowel sounds, Soft, Non tender, Non distended - Back Back: No CVA TTP - Derm Derm: Normal color, Warm and dry, No rash - Extremities Extremities: No deformity - Neuro Neuro: Alert and oriented X 3, laser cutter 2-12 intact Eye Opening: Spontaneous Motor: Obeys Commands Verbal: Oriented GCS Score: 15 Results - Vitals Vitals: Vital Signs - 24 hr 12/18/22 12/18/22 12/18/22 11:38 12:15 12:30 Temperature 36.2 C L 36.8 C Heart Rate 96 90 88 Respiratory 17 18 16 Rate Blood Pressure 135/74 H 129/84 H 130/78 O2 Saturation 98 96 94 12/18/22 12/18/22 12/18/22 13:00 13:30 14:00 Temperature Heart Rate 85 83 84 Respiratory 16 18 18 Rate Blood Pressure 124/73 118/79 127/81 H O2 Saturation 92 98 94 12/18/22 14:30 Temperature Heart Rate 83 Respiratory 20 Rate Blood Pressure 129/74 O2 Saturation 96 Oxygen O2 Source Room air - Labs Labs: Laboratory Tests 12/18/22 12/18/22 11:59 11:59 WBC 6.2 RBC 4.71 Hgb 12.8 L Hct 40.7 L MCV 86.4 MCH 27.2 MCHC 31.4 L RDW 13.9 Plt Count 258 MPV 10.7 Neut # (Auto) 4.4 Lymph # (Auto) 1.0 L [place] # (Auto) 0.6 Eos # (Auto) 0.1 Baso # (Auto) 0.0 Absolute Nucleated RBC 0.00 Nucleated RBC % 0.0 Sodium 138 Potassium 4.4 Chloride 106 Carbon Dioxide 22 Anion Gap 10.0 BUN 34 H Creatinine 1.5 H Estimated GFR (MDRD) 45 L Glucose 176 H Calcium 9.2 PD Medical Decision Making - ED course Complexity details: reviewed results, re-evaluated patient, considered differential, d/w patient ED course: 77-year-old male presents emergency department for evaluation of 2 days face and lip swelling. He has historically been on lisinopril for many years for control of his blood pressure. He went to a local walk-in clinic where he was given epinephrine Benadryl and Decadron and by the time he presented to the ER the swelling had improved. At no point has he had difficulty swallowing talking or breathing. Clinically the patient presents as having angioedema though it has not progressed over 2 days despite treatment. It has improved with the Decadron and epinephrine. He was observed here in the emergency department for 3 hours and felt stable for discharge home. He will be discharged with an additional 3 days of steroids as well as recommendation to absolutely avoid all Luis Fernando inhibitors moving forward. To follow closely with PCP. The usual emergent return precautions discussed Departure - Departure Disposition: 01 Home, Self Care Clinical Impression: Angioedema Qualifiers: Encounter type: initial encounter Qualified Code(s): T78.3XXA - Angioneurotic edema, initial encounter Condition: Serious Record reviewed to determine appropriate education?: Yes Instructions: ED Angioedema Prescriptions: predniSONE [Deltasone] 40 mg PO DAILY 5 Days #6 tablet Comments: Wilfrid for the last 2 days you have been having some swelling of your lips and face. You clinically have developed what is called angioedema which is a severe allergic reaction. This is most likely due to your use of lisinopril your blood pressure medication. You can never ever take lisinopril or any class of A CE inhibitor again. There are many other medications that are LUIS FERNANDO inhibitors so you must check closely with your doctor as well as pharmacies. Please fill the prescription for the prednisone sent to the [facility] in [place]. You will begin taking this tomorrow once a day for the next 3 days. I also recommend that you take Benadryl 25 mg twice daily for the next several days as well as Pepcid 20 mg twice daily for the next several days. These medications are available [id number]. Please discuss this ED visit with your primary care doctor. In addition it will be important to discuss alternative medications to manage your blood pressure in the future. If at any point you have difficulty talking, breathing, swallowing or of any concerns or worsening facial edema you need to return immediately to the ER for repeat evaluation
[2022-12-18] MEDS ORDERED: TRANEXAMIC ACID IN NACL 1,000 MG/100 ML BAG IV ONE (12:00)
[2022-12-18 12:04] LABS: BASOPHILS % (AUTO) 0.6 %; EOSINOPHILS # (AUTO) 0.1 10^3/uL (0.0-0.7); EOSINOPHILS % (AUTO) 1.9 %; HCT - HEMATOCRIT 40.7 % (42.0-52.0); HGB - HEMOGLOBIN 12.8 g/dL (14.0-18.0); LYMPHOCYTES % (AUTO) 16.3 %; MEAN CORPUSCULAR HEMOGLOBIN 27.2 pg (27.0-31.0); MEAN CORPUSCULAR HGB CONC 31.4 g/dL (32.0-36.0); MEAN CORPUSCULAR VOLUME 86.4 fL (80.0-94.0); MEAN PLATELET VOLUME 10.7 fL (7.4-11.4); MONOCYTES # (AUTO) 0.6 10^3/uL (0.0-1.0); MONOCYTES % (AUTO) 9.4 %; NEUTROPHILS # (AUTO) 4.4 10^3/uL (1.5-6.6); NEUTROPHILS % (AUTO) 71.3 %; PLT - PLATELET COUNT 258 10^3/uL (130-450); RED BLOOD COUNT 4.71 10^6/uL (4.70-6.10); RED CELL DISTRIBUTION WIDTH 13.9 % (12.0-15.0); WHITE BLOOD COUNT 6.2 x10^3/uL (4.8-10.8)
[2022-12-18 12:12] LABS: CALCIUM 9.2 mg/dL (8.5-10.3); CREATININE 1.5 mg/dL (0.6-1.2); POTASSIUM 4.4 mmol/L (3.5-5.0)
--- OUTSIDE RECORDS SUMMARY | 2022-12-18 12:24 | EXTERNAL MEDICAL SUMMARY RPT | Continuity of Care Document ---
Author Name Unknown Address [address] [place] [address] Phone Organization [facility] Address [address] [phone] Phone Problems date description facility 2022-10-09 10:20 Chest pain, unspecified [facility] Results/Labs test date facility value unit notes
[2022-12-18 15:22] VITALS: BP 115/82
== END 2022-12-18 15:21 | disposition home or self-care (01) ==
LOC: ED 11:35
DX: T78.3XXA Angioneurotic edema, initial encounter (principal)
CPT/HCPCS: 36415; 80048; 85025; 86160; 96365; 99284

== ENCOUNTER 2022-12-30 08:18 | Outpatient (CLI) | payer MEDICARE, OTHER ==
[2022-12-30 12:45] LABS: ESTIMATED AVERAGE GLUCOSE 206 mg/dL (70-100); HEMOGLOBIN A1c% 8.8 % (4.27-6.07)
[2022-12-30 12:57] LABS: CALCIUM 9.8 mg/dL (8.5-10.3); CREATININE 1.4 mg/dL (0.6-1.3); POTASSIUM 4.8 mmol/L (3.5-4.5)
== END 2022-12-30 08:19 | disposition home or self-care (01) ==
LOC: LAB.N 08:18
PROVIDERS: ATTEND Nurse Practitioner Family
DX: I10 Essential (primary) hypertension (principal); E11.9 Type 2 diabetes mellitus without complications
CPT/HCPCS: 36415; 80048; 83036

== ENCOUNTER 2023-01-06 09:52 | Outpatient (CLI) | payer MEDICARE, OTHER ==
[2023-01-06 13:20] LABS: CALCIUM 9.4 mg/dL (8.5-10.3); CREATININE 1.4 mg/dL (0.6-1.3); POTASSIUM 4.9 mmol/L (3.5-4.5)
== END 2023-01-06 09:53 | disposition home or self-care (01) ==
LOC: LAB.N 09:52
PROVIDERS: ATTEND Nurse Practitioner Family
DX: E87.5 Hyperkalemia (principal); N18.31 Chronic kidney disease, stage 3a
CPT/HCPCS: 36415; 80048

== ENCOUNTER 2023-03-25 11:44 | Outpatient (CLI) | payer MEDICARE, OTHER ==
[2023-03-25 18:03] LABS: ALBUMIN 4.5 g/dL (3.2-5.5); ALBUMIN/GLOBULIN RATIO 1.9 (1.0-2.2); BILIRUBIN,TOTAL 0.5 mg/dL (0.2-1.0); CALCIUM 9.8 mg/dL (8.5-10.3); CREATININE 1.4 mg/dL (0.6-1.3); POTASSIUM 5.1 mmol/L (3.5-4.5); TOTAL PROTEIN 6.9 g/dL (6.4-8.9)
[2023-03-25 20:49] LABS: ESTIMATED AVERAGE GLUCOSE 183 mg/dL (70-100)
== END 2023-03-25 11:45 | disposition home or self-care (01) ==
LOC: LAB.N 11:44
PROVIDERS: ATTEND Nurse Practitioner Family
DX: I12.9 Hypertensive chronic kidney disease with stage 1 through stage 4 chronic kidney disease, or unspecified chronic kidney disease (principal); E11.22 Type 2 diabetes mellitus with diabetic chronic kidney disease; N18.31 Chronic kidney disease, stage 3a
CPT/HCPCS: 36415; 80053; 83036

== ENCOUNTER 2023-07-01 09:49 | Outpatient (CLI) | payer MEDICARE, OTHER ==
[2023-07-01 12:06] LABS: CREATININE,URINE 100.9 mg/dL; MICROALBUM/CREATININE RATIO,UR 11.9 ug/mg (<30.0); MICROALBUMIN,URINE 1.2 mg/dL
[2023-07-01 12:10] LABS: BUN - BLOOD UREA NITROGEN 21 mg/dL (6-20); CALCIUM 9.5 mg/dL (8.5-10.3); CARBON DIOXIDE - CO2 28 mmol/L (21-32); CHLORIDE 105 mmol/L (101-111); CHOL/HDL RATIO 2.5 (<5.0); CHOLESTEROL 119 mg/dL; CREATININE 1.3 mg/dL (0.6-1.3); GFR - MDRD 53 (>89); GLUCOSE 136 mg/dL (74-104); HDL CHOLESTEROL 47 mg/dL; LDL CHOLESTEROL,CALCULATED 50 mg/dL; LDL/HDL RATIO 1.1 (<3.6); POTASSIUM 4.7 mmol/L (3.5-4.5); SODIUM 138 mmol/L (135-145); TRIGLYCERIDES 109 mg/dL (48-352); VLDL CHOLESTEROL 22 mg/dL
[2023-07-01 12:19] LABS: HEMOGLOBIN A1c% 7.5 % (4.27-6.07)
[2023-07-01 12:20] LABS: ESTIMATED AVERAGE GLUCOSE 169 mg/dL (70-100)
== END 2023-07-01 09:50 | disposition home or self-care (01) ==
LOC: LAB.N 09:49
PROVIDERS: ATTEND Nurse Practitioner Family
DX: I12.9 Hypertensive chronic kidney disease with stage 1 through stage 4 chronic kidney disease, or unspecified chronic kidney disease (principal); E11.22 Type 2 diabetes mellitus with diabetic chronic kidney disease; E78.5 Hyperlipidemia, unspecified; N18.9 Chronic kidney disease, unspecified
CPT/HCPCS: 36415; 80048; 80061; 82043; 82570; 83036; 83721

== ENCOUNTER 2023-07-13 15:12 | Outpatient (CLI) | payer MEDICARE, OTHER ==
--- NOTE | 2023-07-13 17:40 | XRAY Report ---
PROCEDURE: Hip w/Pelvis 2-3V RT INDICATIONS: PAIN IN RIGHT HIP TECHNIQUE: 3 views of the hip were acquired. COMPARISON: X-ray knee 719 FINDINGS: Bones: No fractures or dislocations. No suspicious bony lesions. Bilateral hip arthroplasties. Strickland rdware is intact without evidence of hardware fracture or periprosthetic lucency to suggest loosening . Mild degenerative changes are present within the lower lumbar spine. Soft tissues: No suspicious soft tissue calcifications or masses. IMPRESSION: Bilateral hip arthroplasties as above. Reviewed by: Karen Ballard MD on 07/13/2023 5:39 PM PST Approved by: Karen Ballard MD on 07/13/2023 5:39 PM PST Station ID: [id number]
== END 2023-07-13 15:13 | disposition home or self-care (01) ==
LOC: DI.N 15:12
PROVIDERS: ATTEND Nurse Practitioner Family
DX: M25.551 Pain in right hip (principal); Z96.643 Presence of artificial hip joint, bilateral

== ENCOUNTER 2023-07-13 15:40 | Outpatient (CLI) | payer MEDICARE, OTHER ==
--- NOTE | 2023-07-13 15:36 | Sleep Patient Instructions ---
Sleep Center Visit Summary - Patient Visit Information Reason for Visit: Annual Visit - Patient Instructions Additional Instructions: You will continue with CPAP therapy with pressure set at 9 cmH2O. A supply prescription will be updated with your DME. We encourage you to continue to try to lose weight. Please follow up with the sleep care office in 1 year. - Clinic Information Contact: [facility] [address] [place] [address] [email or web address] T: [phone]
--- NOTE | 2023-07-13 15:57 | SLEEP CARE CONSULTATION ---
Information from patient questionnaire entered by Sherine Chandler. I have reviewed and concur with the information entered by Sherine Chandler. This document represents the service I personally performed and the decisions made by me, Therese Nath ARNP. History of Present Illness Service Date and Time: 07/13/2023 1540 Previous diagnosis: Moderate, Obstructive Sleep Apnea-Hypopnea Syndrome AHI: 27.3 (in 2004) Reason for follow up: annual (LAST SEEN 07/2022) Equipment type: CPAP (MENDOZA Dreamstation recertified; s/u 06/2020) Equipment obtained from: [employer] (getting supplies as needed) Mask style: Nasal pillows (medium cushion) Mask brand: Respironics (Dreamwear) Backup mask available: Yes Last cushion change: 3 days ago Prior sleep studies: Yes Year and Where: [address] [place] [address] Type of Sleep Study: Polysomnography HPI additional information: ERIC QURESHI was diagnosed to have moderate, AHI 27.3, obstructive sleep apnea-hypopnea syndrome and returned today with spouse for CPAP therapy annual follow-up. Sleep Study - Results Type of Sleep Study: Polysomnography Prior sleep studies: Yes Year and Where: [address] [place] [address] CPAP Compliance Data - Data Reviewed with Patient Average duration of nightly device use: 7 HRS 2 MINS 11 SECS Compliance rate %: 98.9 (07/08/2022-07/07/23; 365/365 days used) Current pressure setting (cmH2O): 9 Average residual AHI: 0.6 Central apnea: 0.2 Obstructive apnea: 0.3 Average large leak: 2 mins 21 secs Subjective Patient concerns: reports: dry mouth, nose, throat (occasionally, just when opening mouth in mask). denies: aerophagia, mask discomfort, air blowing in eyes, mask leak noise, condensation in mask/hose, nasal congestion, epistaxis Observed to snore while using device: Yes (occasionally) Current pressure setting perceived as: comfortable On therapy, patient: reports: sleeping better, awakening more refreshed, being more awake and alert during the day, more rested overall. denies: drowsiness while driving Initial [place] Sleepiness Scale score: 4 (in 2009) Current [place] Sleepiness Scale score: 4 (07/13/23) Allergies and Home Medications Known drug allergies: No Drug allergies reviewed: Yes Home medication list reviewed: Yes (as listed) Allergy and home medication list: Allergies No Known Drug Allergies Allergy (Verified 07/09/23 15:37) Home Medications Medication Instructions Recorded Confirmed Last Taken Type Aspirin 81 mg PO DAILY 12/28/19 07/13/23 12/23/19 History Simvastatin 20 mg PO DAILY 12/28/19 07/13/23 12/28/19 History metFORMIN [Glucophage] 500 mg PO TID 12/28/19 07/13/23 12/28/19 History Empagliflozin [Jardiance] See Rx Instructions .ROUTE .COMPLEX 07/09/22 07/13/23 Unknown History Cholecalciferol [Vitamin D3] See Rx Instructions .ROUTE .COMPLEX 07/13/23 07/13/23 Unknown History Dulaglutide [Trulicity] See Rx Instructions .ROUTE .COMPLEX 07/13/23 07/13/23 Unknown History Fexofenadine [Susan] See Rx Instructions .ROUTE .COMPLEX 07/13/23 07/13/23 Unknown History Fexofenadine/Pseudoephedrine See Rx Instructions .ROUTE .COMPLEX 07/13/23 07/13/23 Unknown History [Susan-D 12 Hour Tablet] Mecobalamin [B12 Active] See Rx Instructions .ROUTE .COMPLEX 07/13/23 07/13/23 Unknown History Multivitamin See Rx Instructions .ROUTE .COMPLEX 07/13/23 07/13/23 Unknown History Mv-Mn/Om3/Dha/Epa/Fish/Lut/Jamshid See Rx Instructions .ROUTE .COMPLEX 07/13/23 07/13/23 Unknown History [Ocuvite Adult 50 Plus Softgel] amLODIPine [Norvasc] See Rx Instructions .ROUTE .COMPLEX 07/13/23 07/13/23 Unknown History cephALEXin [Keflex] See Rx Instructions .ROUTE .COMPLEX 07/13/23 07/13/23 Unknown History Review of Systems Review of systems same as previous: Yes (NO CHANGE) Physical Exam Vital signs obtained and entered by: SHERINE Villalobos MA Blood Pressure: 139/83 (LEFT ARM) Cuff size: regular Heart Rate: 98 O2 Saturation: 98 Height: 6 ft 1 in Weight: 217 lb Weight change since last visit: 9 lb loss Body Mass Index: 28.6 BMI Classification: Overweight Impression and Plan 1. Obstructive Sleep Apnea-Hypopnea Syndrome, moderate, with good treatment compliance and good apnea control. On CPAP therapy, the patient has better sleep quality and is more rested overall. [] Patient's apnea severity and rationale for treatment to reduce apnea, improve sleep quality and reduce cardiovascular and cerebrovascular events was reviewed. I also reviewed the benefit of consistent device use of CPAP for diabetes. 2. Overweight, unspecified. Currently patients BMI is 28.6. Obesity increases the risk of apnea, CPAP pressure requirements and overall health risks especially cardiovascular and diabetes. Thus patient is advised to continue to try to lose weight. * Continue CPAP pressure at 9 cmH2O * Update supply prescription * Notify me if snoring with mask or feeling that the pressure is too much or too little * Attempt to lose weight * Call this office if any problems using CPAP * Return for follow up in 12 months, or sooner if concerns arise Counseling Topics: Spare mask, Weight loss health impact Prescriptions: Device supplies Follow up with Sleep Care in: 1 year Visit Type: In Office Time Spent with Patient (minutes): 20 Provider Statement: I spent 100% of the Face to Face Visit with the patient with greater than 50% spent counseling the patient and coordination of care.
[2023-07-13 15:59] VITALS: BP 139/83; O2SAT 98
== END 2023-07-13 15:41 | disposition home or self-care (01) ==
LOC: SC 15:40
PROVIDERS: ATTEND Nurse Practitioner Family
DX: G47.33 Obstructive sleep apnea (adult) (pediatric) (principal); E66.3 Overweight; Z68.28 Body mass index [BMI] 28.0-28.9, adult; M25.551 Pain in right hip; Z96.643 Presence of artificial hip joint, bilateral
CPT/HCPCS: 73502; 99213; G0463; 99212

== ENCOUNTER 2023-12-28 08:18 | Outpatient (CLI) | payer MEDICARE, OTHER ==
[2023-12-28 12:31] LABS: BASOPHILS # (AUTO) 0.1 10^3/uL (0.0-0.1); BASOPHILS % (AUTO) 1.2 %; EOSINOPHILS # (AUTO) 0.4 10^3/uL (0.0-0.7); HCT - HEMATOCRIT 46.9 % (42.0-52.0); HGB - HEMOGLOBIN 15.2 g/dL (14.0-18.0); LYMPHOCYTES % (AUTO) 21.1 %; MEAN CORPUSCULAR HEMOGLOBIN 29.1 pg (27.0-31.0); MEAN CORPUSCULAR HGB CONC 32.4 g/dL (32.0-36.0); MEAN CORPUSCULAR VOLUME 89.8 fL (80.0-94.0); MEAN PLATELET VOLUME 12.2 fL (7.4-11.4); MONOCYTES # (AUTO) 0.6 10^3/uL (0.0-1.0); MONOCYTES % (AUTO) 12.9 %; NEUTROPHILS # (AUTO) 2.8 10^3/uL (1.5-6.6); NEUTROPHILS % (AUTO) 56.6 %; PLT - PLATELET COUNT 189 10^3/uL (130-450); RED BLOOD COUNT 5.22 10^6/uL (4.70-6.10); RED CELL DISTRIBUTION WIDTH 13.2 % (12.0-15.0); WHITE BLOOD COUNT 4.9 x10^3/uL (4.8-10.8)
[2023-12-28 12:36] LABS: THYROID STIMULATING HORMONE 3.13 uIU/mL (0.34-5.60)
[2023-12-28 12:37] LABS: ALBUMIN 4.6 g/dL (3.2-5.5); ALBUMIN/GLOBULIN RATIO 1.6 (1.0-2.2); BILIRUBIN,TOTAL 0.6 mg/dL (0.2-1.0); CALCIUM 10.1 mg/dL (8.5-10.3); CREATININE 1.5 mg/dL (0.6-1.3); POTASSIUM 5.1 mmol/L (3.5-4.5); TOTAL PROTEIN 7.4 g/dL (6.4-8.9)
[2023-12-28 12:38] LABS: ESTIMATED AVERAGE GLUCOSE 260 mg/dL (70-100); HEMOGLOBIN A1c% 10.7 % (4.27-6.07)
== END 2023-12-28 08:19 | disposition home or self-care (01) ==
LOC: LAB.N 08:18
PROVIDERS: ATTEND Nurse Practitioner Family
DX: E11.22 Type 2 diabetes mellitus with diabetic chronic kidney disease (principal); N18.31 Chronic kidney disease, stage 3a; E87.5 Hyperkalemia; E78.5 Hyperlipidemia, unspecified
CPT/HCPCS: 36415; 80053; 83036; 84443; 85025

== ENCOUNTER 2024-01-23 09:19 | Emergency (ER) | payer MEDICARE, OTHER ==
[2024-01-23 09:56] LABS: BASOPHILS % (AUTO) 0.6 %; EOSINOPHILS # (AUTO) 0.1 10^3/uL (0.0-0.7); EOSINOPHILS % (AUTO) 2.1 %; HCT - HEMATOCRIT 42.5 % (42.0-52.0); HGB - HEMOGLOBIN 14.6 g/dL (14.0-18.0); LYMPHOCYTES # (AUTO) 0.7 10^3/uL (1.5-3.5); MEAN CORPUSCULAR HEMOGLOBIN 30.1 pg (27.0-31.0); MEAN CORPUSCULAR HGB CONC 34.4 g/dL (32.0-36.0); MEAN CORPUSCULAR VOLUME 87.6 fL (80.0-94.0); MEAN PLATELET VOLUME 11.8 fL (7.4-11.4); MONOCYTES # (AUTO) 0.6 10^3/uL (0.0-1.0); MONOCYTES % (AUTO) 10.2 %; NEUTROPHILS # (AUTO) 4.6 10^3/uL (1.5-6.6); NEUTROPHILS % (AUTO) 74.9 %; PLT - PLATELET COUNT 144 10^3/uL (130-450); RED BLOOD COUNT 4.85 10^6/uL (4.70-6.10); RED CELL DISTRIBUTION WIDTH 12.9 % (12.0-15.0); WHITE BLOOD COUNT 6.2 x10^3/uL (4.8-10.8)
[2024-01-23 10:00] LABS: VBG BASE EXCESS -3.6 mmol/L (-2 - +2); VBG HCO3 21.4 mmol/L (23-28); VBG OXYGEN SATURATION 86.6 % (60-80); VBG PCO2 38.7 mmHg (41-51); VBG PH 7.36 (7.31-7.41); VBG PO2 51.1 mmHg (25-47); VBG TOTAL CO2 22.6 mmol/L (24-29)
[2024-01-23 10:04] LABS: BILIRUBIN,URINE NEGATIVE (NEGATIVE); GLUCOSE, URINE (UA) >=1000 mg/dL (NEGATIVE); KETONES,URINE (UA) NEGATIVE (NEGATIVE); LEUKOCYTE ESTERASE, URINE NEGATIVE (NEGATIVE); NITRITE,URINE NEGATIVE (NEGATIVE); OCCULT BLOOD,URINE NEGATIVE (NEGATIVE); PH,URINE 5.5 PH (5.0-7.5); PROTEIN,URINE NEGATIVE (NEGATIVE); UROBILINOGEN,URINE 0.2 (NORMAL) E.U./dL (NORMAL)
[2024-01-23 10:08] LABS: CLARITY,URINE CLEAR (CLEAR)
[2024-01-23 10:10] LABS: KETONES, SERUM (ACETEST) NEGATIVE (NEGATIVE)
[2024-01-23 10:12] LABS: LIPASE 21 U/L (11-82)
[2024-01-23 10:17] LABS: ALBUMIN 3.9 g/dL (3.2-5.5); ALBUMIN/GLOBULIN RATIO 1.4 (1.0-2.2); ALKALINE PHOSPHATASE 79 IU/L (42-121); ALT ALANINE AMINOTRANSFERASE 19 IU/L (10-60); AST ASPARTATE AMINOTRANSFERASE 17 IU/L (10-42); BILIRUBIN,TOTAL 0.5 mg/dL (0.2-1.0); BUN - BLOOD UREA NITROGEN 33 mg/dL (6-20); CALCIUM 9.3 mg/dL (8.5-10.3); CARBON DIOXIDE - CO2 23 mmol/L (21-32); CHLORIDE 100 mmol/L (101-111); CREATININE 1.5 mg/dL (0.6-1.3); GFR - MDRD 45 (>89); GLUCOSE 571 mg/dL (74-104); POTASSIUM 4.6 mmol/L (3.5-4.5); SODIUM 132 mmol/L (135-145); TOTAL PROTEIN 6.6 g/dL (6.4-8.9)
--- NOTE | 2024-01-23 10:30 | ED Physician Documentation ---
History of Present Illness - Stated complaint Stated Complaint: HIGH BLOOD SUGAR - Chief complaint Chief Complaint: General - History obtained from History obtained from: Patient - History of Present Illness Timing: Today Pain level max: 0 Pain level now: 0 - Additonal information Additional information: Patient is a 78-year-old male who presents to the emergency department stating that his blood sugar was high today. He states it was over 300 this morning. His average blood sugar is around 240-260. No nausea or vomiting. No abdominal pain. No headache. No altered mental status. Nothing makes it better or worse. He has been taking his medications as prescribed at home. No fevers. No recent illnesses. No urinary symptoms. Review of Systems Constitutional: denies: Fever, Chills GI: denies: Vomiting, Diarrhea Skin: denies: Rash Musculoskeletal: denies: Neck pain, Back pain Neurologic: denies: Headache PD PAST MEDICAL HISTORY - Past Medical History Cardiovascular: Hypertension, High cholesterol Respiratory: Sleep apnea, CPAP use Endocrine/Autoimmune: Type 2 diabetes GI: Hiatal hernia, Colon polyps : None HEENT: None Psych: None Musculoskeletal: Osteoarthritis Derm: None - Past Surgical History General: Cholecystectomy, Colonoscopy Ortho: Hip replacement, Spine surgery - Present Medications Home Medications: Ambulatory Orders Medication Instructions Recorded Confirmed Aspirin 81 mg PO DAILY 12/28/19 07/13/23 Simvastatin 20 mg PO DAILY 12/28/19 07/13/23 metFORMIN [Glucophage] 500 mg PO TID 12/28/19 07/13/23 Empagliflozin [Jardiance] See Rx Instructions .ROUTE .COMPLEX 07/09/22 07/13/23 Cholecalciferol [Vitamin D3] See Rx Instructions .ROUTE .COMPLEX 07/13/23 07/13/23 Dulaglutide [Trulicity] See Rx Instructions .ROUTE .COMPLEX 07/13/23 07/13/23 Fexofenadine [Susan] See Rx Instructions .ROUTE .COMPLEX 07/13/23 07/13/23 Fexofenadine/Pseudoephedrine See Rx Instructions .ROUTE .COMPLEX 07/13/23 07/13/23 [Susan-D 12 Hour Tablet] Mecobalamin [B12 Active] See Rx Instructions .ROUTE .COMPLEX 07/13/23 07/13/23 Multivitamin See Rx Instructions .ROUTE .COMPLEX 07/13/23 07/13/23 Mv-Mn/Om3/Dha/Epa/Fish/Lut/Jamshid See Rx Instructions .ROUTE .COMPLEX 07/13/23 07/13/23 [Ocuvite Adult 50 Plus Softgel] amLODIPine [Norvasc] See Rx Instructions .ROUTE .COMPLEX 07/13/23 07/13/23 cephALEXin [Keflex] See Rx Instructions .ROUTE .COMPLEX 07/13/23 07/13/23 - Allergies Allergies/Adverse Reactions: Allergies Allergy/AdvReac Type Severity Reaction Status Date / Time No Known Drug Allergies Allergy Verified 01/23/24 09:24 - Social History Does the pt smoke?: No Smoking Status: Never smoker Does the pt drink ETOH?: No Does the pt have substance abuse?: No - Immunizations Immunizations are current?: Yes PD ED PE NORMAL - Vitals Vital signs reviewed: Yes - General General: Alert and oriented X 3, No acute distress - HEENT HEENT: PERRL, Moist mucous membranes - Neck Neck: Supple, no meningeal sign - Cardiac Cardiac: RRR, Strong equal pulses - Respiratory Respiratory: No respiratory distress, Clear bilaterally - Abdomen Abdomen: Soft, Non tender, Non distended - Derm Derm: Warm and dry - Extremities Extremities: No edema - Neuro Neuro: Alert and oriented X 3 - Psych Psych: Normal mood, Normal affect Results - Vitals Vitals: Vital Signs - 24 hr 01/23/24 01/23/24 01/23/24 09:27 11:28 12:18 Temperature 36.7 C 36.7 C Heart Rate 88 72 73 Respiratory 16 16 Rate Blood Pressure 149/91 H 139/85 H 136/80 H O2 Saturation 99 98 97 Oxygen O2 Source Room air - Labs Labs: Laboratory Tests 01/23/24 01/23/24 01/23/24 09:50 09:50 09:50 WBC 6.2 RBC 4.85 Hgb 14.6 Hct 42.5 MCV 87.6 MCH 30.1 MCHC 34.4 RDW 12.9 Plt Count 144 MPV 11.8 H Neut # (Auto) 4.6 Lymph # (Auto) 0.7 L [place] # (Auto) 0.6 Eos # (Auto) 0.1 Baso # (Auto) 0.0 Absolute Nucleated RBC 0.00 Nucleated RBC % 0.0 VBG pH VBG pCO2 VBG pO2 VBG HCO3 VBG Total CO2 VBG O2 Saturation VBG Base Excess Sodium 132 L Potassium 4.6 H Chloride 100 L Carbon Dioxide 23 Anion Gap 9.0 BUN 33 H Creatinine 1.5 H Estimated GFR (MDRD) 45 L Glucose 571 H* Estimat Average Glucose 341 H Hemoglobin A1c % 13.5 H Calcium 9.3 Total Bilirubin 0.5 AST 17 ALT 19 Alkaline Phosphatase 79 Total Protein 6.6 Albumin 3.9 Globulin 2.7 Albumin/Globulin Ratio 1.4 Lipase 21 Urine Color Urine Clarity Urine pH Ur Specific [place] Urine Protein Urine Glucose (UA) Urine Ketones Urine Occult Blood Urine Nitrite Urine Bilirubin Urine Urobilinogen Ur Leukocyte Esterase Ur Microscopic Review Urine Culture Comments Serum Ketones NEGATIVE 01/23/24 01/23/24 09:50 09:57 WBC RBC Hgb Hct MCV MCH MCHC RDW Plt Count MPV Neut # (Auto) Lymph # (Auto) [place] # (Auto) Eos # (Auto) Baso # (Auto) Absolute Nucleated RBC Nucleated RBC % VBG pH 7.360 VBG pCO2 38.7 L VBG pO2 51.1 H VBG HCO3 21.4 L VBG Total CO2 22.6 L VBG O2 Saturation 86.6 H VBG Base Excess -3.6 L Sodium Potassium Chloride Carbon Dioxide Anion Gap BUN Creatinine Estimated GFR (MDRD) Glucose Estimat Average Glucose Hemoglobin A1c % Calcium Total Bilirubin AST ALT Alkaline Phosphatase Total Protein Albumin Globulin Albumin/Globulin Ratio Lipase Urine Color YELLOW Urine Clarity CLEAR Urine pH 5.5 Ur Specific [place] 1.010 Urine Protein NEGATIVE Urine Glucose (UA) >=1000 H Urine Ketones NEGATIVE Urine Occult Blood NEGATIVE Urine Nitrite NEGATIVE Urine Bilirubin NEGATIVE Urine Urobilinogen 0.2 (NORMAL) Ur Leukocyte Esterase NEGATIVE Ur Microscopic Review NOT INDICATED Urine Culture Comments NOT INDICATED Serum Ketones PD Medical Decision Making - ED course Complexity details: reviewed results, re-evaluated patient, considered differential, d/w patient ED course: Patient remained asymptomatic in the emergency department. Initial blood sugar over 500. His hemoglobin A1c is 13.5, corresponds to an estimated average glucose of 341. Given IV fluids and insulin. Blood sugar decreased to around 360. Tolerating p.o. without difficulty. No abdominal pain, nausea, vomiting. No evidence of DKA. No altered mental status. Recommend he continue his current diabetes medications at home and contact his primary care provider in the morning to discuss adjustment of this. May benefit from insulin. Patient counseled regarding signs and symptoms for which I believe and urgent re- evaluation would be necessary. Patient with good understanding of and agreement to plan and is comfortable going home at this time This document was made in part using voice recognition software. While efforts are made to proofread this document, sound alike and grammatical errors may occur. Departure - Departure Disposition: 01 Home, Self Care Clinical Impression: Hyperglycemia due to diabetes mellitus Condition: Good Instructions: ED Hyperglycemia Diabetic Follow-Up: Meliza Thompson ARNP [Primary Care Provider] - Tomorrow Comments: As we discussed your average blood sugar over the past 3 months is 340. You are down to 360 today after IV fluids and insulin. Please continue your medications at home. Please contact your primary care provider tomorrow to have your medications adjusted, they may want to start you on insulin for home. Forms: PCP List Discharge Date/Time: 01/23/24 12:24
[2024-01-23 11:06] LABS: ESTIMATED AVERAGE GLUCOSE 341 mg/dL (70-100); HEMOGLOBIN A1c% 13.5 % (4.27-6.07)
[2024-01-23] MEDS: INSULIN REGULAR, HUMAN 300 UNIT/3 ML PEN SUBQ STA (11:06)
[2024-01-23] MEDS: SODIUM CHLORIDE 0.9% 1,000 ML IV STA (11:06)
[2024-01-23 12:22] VITALS: BP 136/80
[2024-01-23 12:32] VITALS: O2SAT 97
== END 2024-01-23 12:24 | disposition home or self-care (01) ==
LOC: ED 09:19
DX: E11.65 Type 2 diabetes mellitus with hyperglycemia (principal); I10 Essential (primary) hypertension; E78.00 Pure hypercholesterolemia, unspecified; Z79.82 Long term (current) use of aspirin; Z79.84 Long term (current) use of oral hypoglycemic drugs; Z79.85 Long-term (current) use of injectable non-insulin antidiabetic drugs; Z79.899 Other long term (current) drug therapy
CPT/HCPCS: 36415; 80053; 81001; 81003; 82009; 82803; 83036; 83690; 85025; 87086; 99283